=== PATIENT | female | born 1985 | race Asian ===

== ENCOUNTER → 2020-03-17 07:44 | Outpatient (CLI) | payer OTHER, SELFPAY ==
[2020-03-17 07:52] VITALS: BP 134/62; PULSE 90; RESP 16; TEMP 36.3; O2SAT 100; BMI 33.6
[2020-03-17 08:35] VITALS: BP 126/69; PULSE 87; RESP 16; TEMP 36.5; O2SAT 99
[2020-03-17] MEDS: 0.9% Saline Lock 10 ML Syringe IV (08:45)
[2020-03-17 09:35] VITALS: BP 121/70; PULSE 84; RESP 16; TEMP 36.5; O2SAT 98
[2020-03-17 10:05] VITALS: BP 126/79; PULSE 86; RESP 18; TEMP 36.5; O2SAT 98
== END ==
PROVIDERS: PCP Family Medicine; Referring Provider Nurse Practitioner Family; Visit Provider Nurse Practitioner Family
DX: N92.0 Excessive and frequent menstruation with regular cycle (principal)
CPT/HCPCS: 36415; 36430; 86850; 86900; 86901; 86920; 86922; J7040; P9016; A4216

== ENCOUNTER 2020-04-07 14:45 | Observation (INO) | payer OTHER, SELFPAY ==
[2020-03-17 07:52] VITALS: BMI 33.6
--- NOTE | 2020-04-06 18:41 | PCM.HPOB.BLA ---
- Problem List (1) Menorrhagia Status: Acute History and Physical Date of Admission: 04/07/20 DATE OF SERVICE: April 01, 2020 ? PROBLEM:?menorrhagia ? DIAGNOSIS:?menorrhagia ? PAST SURGICAL HISTORY:? PAST SURGICAL HISTORY PAST SURGICAL HISTORY Procedure Laterality Date ? DELIVERY ONLY ? 10/02/11 ? , low transverse ? DELIVERY ONLY N/A 11/22/2016 ? MIRENA ? 10/13/2019 ? menstrual dysfunction ? REM LESION NEC,HND,SCAL 2.1-3.0CM ? ? ? removal of 2.5 cm vulvar lesion ? PAST MEDICAL HISTORY:? PAST MEDICAL HISTORY PAST MEDICAL HISTORY Diagnosis Date ? Anemia affecting in third trimester 03/24/2020 ? Gestational diabetes ? ? Infertility, female ? ? attempted x 3 years with 1st ? Preeclampsia ? ? SUBJECTIVE:?menorrhagia ? SOCIAL HISTORY:? SOCIAL HISTORY Social History ? Tobacco Use ? Smoking status: Former Smoker ? ? Last attempt to quit: 08/16/2009 ? ? Years since quittin.6 ? Smokeless tobacco: Never Used Substance Use Topics ? Alcohol use: Yes ? ? Comment: social,NOT WHILE ? Drug use: No Current Outpatient Medications on File Prior to Visit Medication Sig ? megestrol (MEGACE) 20 mg tablet Take 1 tablet (20 mg) by mouth twice daily. ? MULTIVITAMIN ORAL Take by mouth. ? cetirizine HCl (ZYRTEC ORAL) Take by mouth as needed. ? Current Facility-Administered Medications on File Prior to Visit Medication ? iron sucrose 200 mg injection (VENOFER) ALLERGIES ALLERGIES Allergen Reactions ? Amoxil [Amoxicillin] Hives ? Cephalexin ? Hives ? ? Component Latest Ref Rng & Units 03/22/2020 WBC 3.70 - 11.00 k/uL 5.43 RBC 3.90 - 5.20 m/uL 4.89 Hemoglobin 11.5 - 15.5 g/dL 8.6 (L) Hematocrit 36.0 - 46.0 % 30.6 (L) MCV 80.0 - 100.0 fL 62.6 (L) MCH 26.0 - 34.0 pG 17.6 (L) MCHC 30.5 - 36.0 g/dL 28.1 (L) RDW-CV 11.5 - 15.0 % 20.1 (H) Platelet Count 150 - 400 k/uL 254 MPV 9.0 - 12.7 fL 9.9 Absolute nRBC <0.01 k/uL <0.01 Transvaginal ultrasound examination Uterus ====== Uterus: Visualized Uterus position: anteverted Uterus long 107 mm Uterus ap 73 mm Uterus tr 80 mm Uterus Vol 327.5 cm? Endometrial thickness, total 6.5 mm Uterine fibroid D1 47 mm Uterine fibroid D2 46 mm Uterine fibroid D3 45 mm Uterine fibroid mean 46.0 mm Uterine fibroid vol 50.941 cm? Uterine fibroids findings: mid uterus Uterine fibroid D1 15 mm Uterine fibroid D2 10 mm Uterine fibroid D3 14 mm Uterine fibroid mean 13.0 mm Uterine fibroid vol 1.100 cm? Uterine fibroids findings: posterior, mid left uterus Right Ovary ========= Rt ovary: Visualized Rt ovary D1 29 mm Rt ovary D2 18 mm Rt ovary D3 29 mm Rt ovary Vol 7.7 cm? Left Ovary ======== Lt ovary: Visualized Lt ovary D1 38 mm Lt ovary D2 28 mm Lt ovary D3 15 mm Lt ovary Vol 8.5 cm? Cul de Sac ? ? OBJECTIVE: ? VITALS: BP 110/76 ? Pulse 68 ? Resp 14 ? Ht 5' 3 (1.6 m) ? Wt 181 lb (82.1 kg) ? LMP 03/06/2020 ? BMI 32.06 kg/m? ? HEENT: ?Normocephalic, atraumatic, Mucus membranes moist without lesions. ? NECK: ???Soft and Supple. ?No adenopathy , thyromegaly or bruits. ? SKIN: No lesions. ? CHEST: Clear to auscultation. ?No wheezes or rales. ?Good air exchange. ? HEART: Regular rate and rhythm ?No S3 or S4. ?No gallops or rubs. ? BACK: Nontender with no CVA tenderness. ? ABDOMEN: Soft, non-tender, non-distended, no masses, no hepatosplenomegaly. ? LOWER EXTREMITIES: There was no pitting edema, no palpable cords and no skin changes. ? ? ASSESSMENT: ? PLAN:?Discussed all other treatment options for menorrhagia. Discussed possible need for laparotomy. Reviewed option for referral to a minimally invasive specialist for a robotic surgery. Pt is getting IV iron infusions. Will type and cross for 2 units prior to surgery. Discussed possible need for blood transfusion. Discussed TLH, BS, cysto.?The rationale for the proposed surgery was discussed in addition to risks, benefits, and alternatives. ?General pre- and post-operative care was reviewed. ?Questions were answered. ?After discussion, the patient indicated a desire to proceed with the planned surgery. ? Ramona Mcclelland,?DO
[2020-04-07] VITALS (13 sets, daily range): BP systolic 106–139; BP diastolic 52–85; PULSE 87–105; RESP 16–18; TEMP 36.2–37.2; O2SAT 92–100; BMI 31.9; BMI 32.8
[2020-04-07] MEDS: Scopolamine 1mg/72hr Patch 1 PATCH TRANSDERM. (07:00)
[2020-04-07] MEDS: Lactated Ringers 1,000 ML 40 ML IV ×2 (07:00→16:13)
[2020-04-07 07:49] LABS: Internal QC Validated? YES +Cl - CLEAR BKGD; Pregnancy, Urine Negative Negative
[2020-04-07 08:04] LABS: Hematocrit 38.5 % (37-47); Hemoglobin 10.8 g/dL (12.0-15.0); Mean Corp Hgb Conc 28.1 g/dL (32-36); Mean Corpuscular Hgb 19.1 pg (27.0-32.0); Mean Corpuscular Volume 68.3 fL (81-99); POSITIVE MORPHOLOGY YES; Platelet Count 286 K/mm3 (150-450); RBC Distribution Width CV 27.4 % (11.6-14.6); Red Blood Count 5.64 M/mm3 (4.2-5.4); White Blood Count 4.4 K/mm3 (4.4-11.0)
[2020-04-07 08:05] LABS: Scan Indicated on CBC? Y/N YES- FLAGS NOTED
[2020-04-07 08:10] LABS: Magnesium 1.9 mg/dL (1.6-2.6)
[2020-04-07 08:15] LABS: Partial Thromboplast Time 26.5 Seconds (24.1-36.2); Prothrombin Time (Protime)PT. 12.7 SECONDS (11.7-14.9)
[2020-04-07] MEDS: Celecoxib 200 MG Capsule 400 MG PO (08:16)
[2020-04-07] MEDS: Gabapentin 600 MG Tablet PO (08:17)
[2020-04-07] MEDS: Phenazopyridine 95 MG Tablet 190 MG PO (08:17)
[2020-04-07] MEDS: Acetaminophen 500 MG Tablet 1000 MG PO ×2 (08:18→19:40)
[2020-04-07] MEDS: dexAMETHasone 10 MG/ML Vial 8 MG IV (08:19)
[2020-04-07 08:51] LABS: Bedside Glucose 221 mg/dL (70-110)
--- NOTE | 2020-04-07 09:35 | HYST_PTH ---
PATIENT: VANESSA SMALL LOC: MS3 U#:[id number] AGE/SX: 35/F ROOM: MS306 RE04/07/[address]: Dr. Ramona Mcclelland DO : 1985 BED: 1 DIS: 04/08/2020 SPEC #: [id number] RECD: 04/07/20 16:03 STATUS: KATHARINE ANTON #: [id number] TRU: 04/07/20 09:[address]: Ramona Mcclelland DEPT: SURGICAL PATHOLOGY RECD BY: Dagoberto Leiva ENTERED: 04/08/20 08:03 SP TYPE: HYSTERECT OTHR DR: MD Dr. Bradley Caldwell DO Tissues: Uterus, NOS Procedures: Surgery Specimen Level V HEADER OPERATION: ERAS, TLH, bilateral salpingectomy, cystoscopy PRE-OP DIAGNOSIS: Menorrhagia TISSUE SUBMITTED: Uterus and bilateral fallopian tubes MICROSCOPIC DIAGNOSIS Uterus, hysterectomy: Cervix - nabothian cysts and mild chronic inflammation. Endometrium - weakly proliferative endometrium. Myometrium - leiomyomas and focal superficial adenomyosis. Fallopian tubes - benign paratubal cyst. AM:leda 04/11/20 MICROSCOPIC DESCRIPTION Slides are reviewed. GROSS DESCRIPTION Received in fixative is one container labeled with the patient's name and designated uterus and bilateral fallopian tubes. The specimen consists of a hysterectomy specimen consisting of uterus with cervix and detached bilateral fallopian tubes. The uterus with cervix weighs 244 gm and measures 12 x 9 x 6 cm. The serosal surface is akins, glistening. The ectocervical mucosa is unremarkable. The external os is slit-like in contour. The endocervical canal measures 3.5 cm in length and the endocervical mucosa is akins, glistening and unremarkable. Section of the cervix reveals a few cysts filled with mucoid material. The saucer-shaped endometrial cavity measures 6 cm in length and 5 cm in width. The endometrium is akins, glistening without any mass lesion and measures 0.1 cm in thickness. The endometrial cavity is compressed to one side. Sections of the uterine wall reveal two nodular masses. The largest mass is present submucosal to intramural in the anterior uterine wall and measures 5 cm in diameter. Section of the anterior uterine wall also contains an underlying nodular mass. Section of the posterior uterine wall reveals a smaller nodular mass measuring 1.5 cm in diameter. The uninvolved uterine wall measures up to 2.5 cm in thickness. Sections of these masses reveal akins whorled cut surfaces without areas of hemorrhage, necrosis or cystic degeneration. The detached bilateral fallopian tubes are not identified as right or left. One of the fallopian tubes measures 2.5 cm in length and 0.5 cm in diameter. The fimbrial end is identified. The second fallopian tube measures 4 cm in length and 0.8 cm in diameter. The fimbrial end is identified. Sections of both fallopian tubes reveal unremarkable cut surfaces. Plaque Maker sections are submitted in ten cassettes as follows: 1 - anterior cervix, 2 - posterior cervix, 3 & 4 - anterior uterine wall, 5 & 6 - posterior uterine wall, 7 - smaller nodular mass, 8 - larger nodular mass, 9 - smaller fallopian tube, entirely submitted, 10 - second fallopian tube. / OWEN:leda 04/08/20 TC:1 CPT: 22451
[2020-04-07] MEDS: Lactated Ringers 1,000 ML 100 ML IV ×2 (12:16→13:46)
[2020-04-07] MEDS: Bupivacaine Mpf 0.5% 30 ML VIAL (13:00)
--- NOTE | 2020-04-07 14:47 | PCM.OPRPT ---
Problem List (1) Menorrhagia Status: Acute (2) Acute blood loss anemia Status: Acute (3) Fibroid uterus Status: Acute Report of Operation Date of Procedure: 04/07/20 Pre-Operative Diagnosis: Menorrhagia, acute blood loss anemia, fibroid uterus Post-Operative Diagnosis: As above Surgery/Procedure Performed:: TLH, BS, cysto Description of Surgical Findings:: Enlarged fibroid uterus. There was a 5 cm intramural fibroid present. Normal-appearing bilateral fallopian tubes and bilateral ovaries. Normal-appearing pelvis. Bladder normal-appearing. Omental adhesions. value stream coach: Darlin Holland Type of Anesthesia:: General Special Medications: None Specimen's removed: Uterus, bilateral fallopian tubes, cervix Drains: Barahoan Estimated Blood Loss (mL): 100 Fluids Replaced: 2800 Description of Procedure: The patient was taken to the operating room where general anesthesia was induced. She was placed in the dorsal lithotomy position using yellowfin stirrups. She was prepped and draped in the usual sterile fashion. A Barahona catheter was inserted in the bladder. A weighted speculum was then placed in the vagina with good visualization of the cervix. The cervix was grasped anteriorly with a single-tooth tenaculum. A Sandag care uterine manipulator was placed. The weighted speculum was then removed. Gloves were changed and attention was then turned to the abdominal portion of the case. Local was used for infiltration of all port sites. Beginning in the subumbilical area, the skin was first infiltrated and then a 5 mm incision was made through the skin with a scalpel. A 5 mm port and the laparoscope were placed under direct visualization. Once confirmed intraperitoneal, the peritoneal cavity was insufflated with CO2 gas to maximum pressure of 20 mmHg. Significant omental adhesions were noted. A left upper quadrant 5 mm port was placed. Using the LigaSure device through the port in the left upper quadrant, the omental adhesions were cauterized and transected. Examination of the peritoneal cavity revealed no signs of injury from entry. The patient was placed in steep Trendelenburg. Once the omental adhesions were cauterized and transected, and the omentum was brought down off of the anterior abdominal wall, a left lateral and right lateral 5 mm port were placed. The fibroid uterus was noted to be enlarged. Then on the left side, the fallopian tube was elevated out of the pelvis to expose the mesosalpinx. The mesosalpinx was sequentially clamped, cauterized, and cut using the LigaSure device hugging adjacent to the tube from distal to proximal in the direction of the cornua. Once the cornea was reached, the tube was ligated and cut and removed through a 5 mm port. Following this the utero-ovarian ligament was clamped, sealed, and cut. The ovarian pedicle was inspected and noted to be hemostatic. Attention was then turned to the other side. The same process was repeated on the right, sequentially clamping, ligating, and cutting the mesosalpinx. The round ligament was then ligated and cut. Following this the anterior leaf of the broad ligament was then taken down on the right side dissecting towards the peritoneal reflection at the base of the bladder and adjacent to the cervix. The same process was was then repeated on the left side such that both sides met anteriorly. Once the bladder was appropriately dissected free from the lower uterine segment and tissue was skeletonized, the uterine arteries were bilaterally clamped and ligated. Pedicles were checked and hemostatic. At the level of the cup of the uterine manipulator, the vaginal vault was incised circumferentially with a monopolar hook. The uterus, cervix, tubes were delivered through the vagina and sent to pathology for review. The vaginal vault was then closed with Vicryl from below. There was a laceration noted along the left vaginal wall that was bleeding, and this was closed using Vicryl to ensure hemostasis. Inspection of all areas was made to ensure hemostasis. A cystoscopy was performed and the bladder was normal-appearing. Then attention was turned to the abdominal portion of the case again. The abdomen was insufflated. Hemostasis was noted from above, and the pelvis was suction irrigated. All ports were removed under direct visualization and hemostasis was noted. The subumbilical port was then opened to release the abdominal cavity and was then removed. All the incisions were closed with Monocryl in a subcuticular fashion. At the end the procedure all sponge, instrument, and sharps were correct. All instruments were removed from the vagina and a vaginal sweep was performed. The patient was taken to the recovery room in stable condition. Grafts/Implants Used: None - Complications None - Admit VTE Documentation VTE Present on Admission: No VTE Mechan Device Prophylaxis: SCD's
[2020-04-07] MEDS: Ondansetron ODT 4 MG Tablet PO (17:26)
[2020-04-07] MEDS: Ketorolac 30 MG/ML Syringe IV (17:28)
[2020-04-07] MEDS: Docusate Sodium 100 MG Capsule PO (22:45)
[2020-04-08] MEDS: Ondansetron ODT 4 MG Tablet PO (00:38)
[2020-04-08] MEDS: Ketorolac 30 MG/ML Syringe IV ×3 (00:38→11:30)
[2020-04-08 03:30] VITALS: BP 113/70; PULSE 101; RESP 16; TEMP 36.8; O2SAT 96
[2020-04-08] MEDS: Acetaminophen 500 MG Tablet 1000 MG PO ×2 (05:12→11:30)
[2020-04-08 05:32] LABS: Hematocrit 33.2 % (37-47); Hemoglobin 9.2 g/dL (12.0-15.0); Mean Corp Hgb Conc 27.7 g/dL (32-36); Mean Corpuscular Hgb 19.5 pg (27.0-32.0); Mean Corpuscular Volume 70.3 fL (81-99); Mean Platelet Vol. 10.7 fl (6.2-12.0); POSITIVE MORPHOLOGY YES; Platelet Count 274 K/mm3 (150-450); RBC Distribution Width CV 27.9 % (11.6-14.6); RBC Distribution Width SD 66.6 fl (35.1-43.9); Red Blood Count 4.72 M/mm3 (4.2-5.4); White Blood Count 6.1 K/mm3 (4.4-11.0)
[2020-04-08 05:36] LABS: Scan Indicated on CBC? Y/N YES- FLAGS NOTED
--- NOTE | 2020-04-08 05:44 | NURSING ---
pt walked in josue x1 around entire unit. C/O ABD pain/gas pressure. Chewing gum provided.
[2020-04-08 05:54] VITALS: BP 118/78; PULSE 92; RESP 16; TEMP 36.9; O2SAT 97
[2020-04-08] MEDS: oxyCODONE 5 MG Tablet PO ×2 (06:29→08:24)
[2020-04-08 06:33] LABS: Differential Comment SCANNED
--- NOTE | 2020-04-08 07:43 | PN.OBGYN_ITS ---
Patient Problems: Active and Suspected Problems Acute blood loss anemia (Acute) Fibroid uterus (Acute) Subjective: She is doing well this morning. Overnight her pain she reports was not well controlled, but she took oxycodone this morning and now she feels her pain is well controlled. She was having some nausea yesterday that is now resolved. She has ambulated without lightheadedness or dizziness. Barahona remains in place. She denies chest pain, shortness of breath, leg pain. No heavy vaginal bleeding. - Physical Exam Vitals/I&O's: Vital Signs Temp Pulse Resp BP Pulse Ox 98.5 F 92 16 118/78 97 04/08/20 05:54 04/08/20 05:54 04/08/20 05:54 04/08/20 05:54 04/08/20 05:54 Oxygen Flow Rate (L/min) 6 Oxygen Delivery Method Room Air Weight: 185 lb Body Mass Index (BMI) 32.8 Intake and Output for Last 24 Hours 04/06/20 04/07/20 04/08/20 23:59 23:59 23:59 Intake Total 3267.875 / 3867.875 900 / 900 Output Total 100 / 1925 2275 / 2275 Balance 3167.875 / 1942.875 -1375 / -1375 General: Alert, No apparent distress HEENT: Atraumatic Abdomen: Soft, Non-Distended, - - ATTP, no rebounding, no gaurding, no rigidity Extremities: No edema, No Calf Tenderness Skin: No rashes Neurological: Neuro grossly intact Psych/Mental Status: Normal Affect, Appropriate Laboratory Results 04/07/20 07:50: WBC 4.4, RBC 5.64 H, Hgb 10.8 L, Hct 38.5, MCV 68.3 L, MCH 19.1 L, MCHC 28.1 L, RDW Std Deviation 62.0 H, RDW Coeff of Clementina 27.4 H, Plt Count 286, Differential Comment COMMENT 04/07/20 07:50: PT 12.7, INR 1.0, APTT 26.5 04/07/20 07:50: Magnesium 1.9 04/07/20 07:50: Blood Type B POSITIVE, Antibody Screen NEGATIVE 04/07/20 08:09: POC Glucose 221 H 06/25/20 : Urine Test Negative 04/08/20 05:00: WBC 6.1, RBC 4.72, Hgb 9.2 L, Hct 33.2 L, MCV 70.3 L, MCH 19.5 L , MCHC 27.7 L, RDW Std Deviation 66.6 H, RDW Coeff of Clementina 27.9 H, Plt Count 274, MPV 10.7, Differential Comment SCANNED Current Medications Acetaminophen (Tylenol) 1,000 mg PO Q6 [facility] Last Admin: 04/08/20 05:12 Dose: 1,000 mg Documented by: Docusate Sodium (Colace) 100 mg PO BID [facility] Last Admin: 04/07/20 22:45 Dose: 100 mg Documented by: Enoxaparin Sodium (Lovenox) 40 mg SC DAILY [facility] Lactated Ringer's () 1,000 mls @ 40 mls/hr IV .Q25H [facility] Stop: 04/08/20 15:39 Last Admin: 04/07/20 16:13 Dose: 40 mls/hr Documented by: Ketorolac Tromethamine (Toradol (Bkc)) 30 mg IV Q6 [facility] Stop: 04/09/20 00:01 Last Admin: 04/08/20 05:12 Dose: 30 mg Documented by: Magnesium Oxide (Mag-Ox 400) 400 mg PO DAILY PRN PRN PRN Reason: Constipation Nutritional Formula (Lactose Free) (Ensure Enlive) 120 ml PO TIDCM [facility] Last Admin: 04/07/20 17:28 Dose: Not Given Documented by: Ondansetron HCl (Zofran Odt) 4 mg PO Q6H PRN PRN PRN Reason: NAUSEA Last Admin: 04/08/20 00:38 Dose: 4 mg Documented by: Oxycodone HCl (Oxyir) 5 - 10 mg PO Q4H PRN PRN PRN Reason: Pain Score 4-10/10 Last Admin: 04/08/20 06:29 Dose: 5 mg Documented by: Medical Necessity - Tobacco Use Smoking Status: Former smoker Assessment/Plan All Active Problems Menorrhagia (Acute) Acute blood loss anemia (Acute) Fibroid uterus (Acute) Patient is postoperative day 1 from a total laparoscopic hysterectomy, bilateral salpingectomy, cystoscopy. She is doing well this morning. Hemodynamically stable. CBC reviewed. Encourage ambulation this morning. Barahona to be removed. Discharge order placed. Reviewed discharge instructions with patient. To be discharged after she tolerates breakfast and lunch, ambulating, and voiding on her own.
--- NOTE | 2020-04-08 07:48 | DCINST_ITS ---
- Discharge Diagnoses Current Active Problems: Current Active and Chronic Problems Acute blood loss anemia (Acute) Fibroid uterus (Acute) You will use the following diet at home:: No restrictions, Regular Discharge Activity: May not drive while taking narcotic pain medications., May Shower May resume sexual activity in: 6-8 weeks Ice area for (Minutes): 15 Weight Bearing Status: Weight bearing as tolerated Lifting Restrictions: Do not lift anything greater than 10 lbs Call your doctor if your incision/area has: Sudden Increased Bleeding, Increased Pain/ Swelling, Increased Redness, Foul Smelling Discharge, Swelling at the incision site Call your doctor if you observe: Fever of 101 or Higher, Inability to urinate, Inability to have a bowel movement, Using more than one pad per hour, Shortness of breath, Dizziness, Fainting spells, Chest pain, Increased palpitations (irregular heartbeat), Calf discomfort, Uncontrolled pain, - - Heavy vaginal bleeding, vaginal discharge Suture Line Care: Avoid Pulling/Pushing, Avoid Pinching/Bending Cleanse incision/area with: Soap & Water Allergies/Adverse Reactions: Allergies amoxicillin [Amoxicillin] Allergy (Verified 04/07/20 07:57) Hives cephalexin Allergy (Verified 04/07/20 07:57) Rash Medications to take at Discharge Megestrol Acetate 20 mg PO BID 03/17/20 Multivitamins,Therapeutic [Multivitamin] 1 tab PO DAILY 03/17/20 Ibuprofen [Motrin] 400 mg PO Q8H PRN 03/31/20 Docusate Sodium [Colace] 100 mg PO BID PRN PRN #60 cap 04/08/20 Ferrous Sulfate 325 mg PO DAILY #60 tab 04/08/20 Ibuprofen [Motrin] 800 mg PO TID PRN PRN #30 tab 04/08/20 Oxycodone HCl/Acetaminophen [Percocet 5/325] 1 tablet PO Q6H PRN PRN 7 Days #20 tablet 04/08/20 Primary Care Physician: Bradley Butler DO [Primary Care Provider] - Test Results: Test results from this visit will be discussed in further detail at your follow- up appointment, if applicable. Please Follow Up With: Ramona Mcclelland DO When: 1-2 weeks, and 6 weeks
[2020-04-08 08:12] VITALS: O2SAT 98
[2020-04-08] MEDS: Enoxaparin 40 MG/0.4 ML Syringe SC (08:21)
[2020-04-08] MEDS: Docusate Sodium 100 MG Capsule PO (08:21)
[2020-04-08 11:44] VITALS: BP 113/72; PULSE 89; RESP 16; TEMP 36.7; O2SAT 95
--- NOTE | 2020-04-08 12:15 | PHA.DC.MC ---
Pharmacy Service has performed discharge medication reconciliation and counseling for this patient. 1. DOCUSATE 100MG PO BID PRN CONSTIPATION 2. FERROUS SULFATE 325MG PO DAILY 3. OXYCODONE/ACETAMINOPHEN 5/325MG PO Q6H PRN PAIN 6-07/23 X 7 DAYS The patient's discharge medication list was reviewed for discrepancies and discrepancies were resolved. Instructed patient to not take ibuprofen 400mg while taking 800mg dose. Home Medications Megestrol Acetate 20 mg PO BID 03/17/20 Multivitamins,Therapeutic [Multivitamin] 1 tab PO DAILY 03/17/20 Ibuprofen [Motrin] 400 mg PO Q8H PRN 03/31/20 Docusate Sodium [Colace] 100 mg PO BID PRN PRN #60 cap 04/08/20 Ferrous Sulfate 325 mg PO DAILY #60 tab 04/08/20 Ibuprofen [Motrin] 800 mg PO TID PRN PRN #30 tab 04/08/20 Oxycodone HCl/Acetaminophen [Percocet 5/325] 1 tab PO Q6H PRN PRN 7 Days #20 tab 04/08/20 The patient was counseled on the following discharge medications and changes in medications for homegoing were reviewed. The Reason for Use, instructions for use, and potential side effects were reviewed for all new medications. The patient's questions regarding all of their medications were answered. The patient was able to verbally demonstrate an understanding of their discharge medications.
== END 2020-04-08 12:36 | disposition home or self-care (01) ==
LOC: SDC 15:00 → MS3 15:00
PROVIDERS: Anesthesiology; Admitting Provider Obstetrics & Gynecology; PCP Family Medicine; Referring Provider Obstetrics & Gynecology; Visit Provider Obstetrics & Gynecology
PROC: 0UT94ZZ Resection of Uterus, Percutaneous Endoscopic Approach (ICD-10-PCS; CPT 58571; principal; 2020-04-07 09:15)
DX: D25.1 Intramural leiomyoma of uterus (principal); N88.8 Other specified noninflammatory disorders of cervix uteri; N83.8 Other noninflammatory disorders of ovary, fallopian tube and broad ligament; Z87.891 Personal history of nicotine dependence; D50.9 Iron deficiency anemia, unspecified; K21.9 Gastro-esophageal reflux disease without esophagitis
CPT/HCPCS: 00940; 58571; 81025; 82962; 83735; 85027; 85610; 85730; 86850; 86900; 86901; 87635; 88307; 96372; 96374; 96376; 99218; 99251; G2023; J7120; G0378; G0379; G0463; J2405; J3475; U0003

== ENCOUNTER 2022-01-30 15:11 | Outpatient (CLI) | payer BC, SELFPAY ==
[2022-01-30 16:53] LABS: Hemoglobin A1c 6.9 % (3.8-5.6)
[2022-01-30 16:58] LABS: ALB/GLOB Ratio 1.1 RATIO (0.9-2.4); AST(SGOT) 34 U/L (15-37); Alanine Aminotransfer ALT/SGPT 49 U/L (13-56); Alkaline Phosphatase 89 U/L (45-117); Anion Gap 6 (5-15); BUN 11 mg/dL (7-18); BUN/Creat Ratio 12.7 RATIO (10-20); Chloride 106 mmol/L (98-107); Creatinine, Serum 0.87 mg/dL (0.55-1.02); EST Glomerular Filtration Rate 78 mL/min (>60); Est Glom Filt Rate - Afr Amer 95 mL/min (>60); Globulin 3.8 g/dL (2.2-4.2); Glucose 143 mg/dL (74-106); Potassium 3.9 mmol/L (3.5-5.1); Protein, Total 7.8 g/dL (6.4-8.2); Sodium Level 137 mmol/L (136-145); Thyroid Stim Hormone (TSH) 0.96 uIU/mL (0.358-3.74)
== END 2022-01-30 23:59 | disposition home or self-care (01) ==
PROVIDERS: PCP Family Medicine; Referring Provider Family Medicine; Visit Provider Family Medicine
DX: R73.03 Prediabetes (principal)
CPT/HCPCS: 36415; 80053; 83036; 84443

== ENCOUNTER 2022-07-26 13:52 | Outpatient (RCR) | payer SELFPAY | END 2022-07-26 19:00 | disposition home or self-care (01) | LOC: PT 13:52 | PROVIDERS: PCP Family Medicine | DX: R69 Illness, unspecified (principal) ==

== ENCOUNTER 2022-08-14 15:00 | Outpatient (RCR) | payer BC, SELFPAY ==
--- NOTE | 2022-08-08 15:53 | HP.OTEVAL_ITS ---
Patient's Visit Information VANESSA SMALL is a 37 year old F, referred to Occupational Therapy by Dr. Bridgette Valdes DO, with a diagnosis of wrist tendonitis. Date of Evaluation: 08/08/22 Occupational Therapist: Lexie Miranda, MARKOSR/Marvin, CHT - Subjective This 37 year old female was seen for OT eval with dx of right wrist tendonitis- pt states her symptoms initiated about eight weeks ago. Pt states her DrRoss did place her on an anti-inflammatory- pt states she has been wear ight brace but had more pain around her thumb and had tingling so she decided to not wear it. pt does workout 6 days a week- pts exercise ranges from free wts, group classes and gym eq. pt states she does use kettle riggs with one hand- now pain with ex. and wrist hurts more after exercising. pt states she does get a catch or click in her wrist from time to time. pt would like to resume her daily tasks without pain including her exercise routines. - Pain right wrist 3 Pain Intensity Range: 6 - ROM Forearm: right supination 30* without pain left WNL Wrist: right 65/40 left 70/60 ROM Comments: pt demo with a click with forearm supination and pronation. pt can get full supination just painful to perform. - Strength Jacquard Plate Maker: right 35# left 45# Lateral Pinch: right 12# left 8# Tripod Pinch: right 4# left 8# - Sensation Sensation Comments: denies - Goals Goal:ROM equal to unaffected hand: Yes Goal:Jacquard Plate Maker/Pinch strength at least 75% of unaffected hand: Yes Goal:No pain with affected hand use: Yes Goal:Full use of affected hand in daily activities including: Yes Comment: ergonomic use with daily tasks Other Goal: pt will demo understanding of wrist ergo with daily tasks to avoid tendon stress by d/c - Rehabilitation General Assessment: This 37 year old female demo with painful ulnar side of wrist- click with forearm supination/pronation- negative piano chew- positive TFCC resistive testing- pt demo with ligament instability increasing pain with daily tasks and limits her IND. pt would benefit from OT services 1-2x week for 4 weeks to return pt to PLOF. Today therapist ed. pt on wrist ergonomics with lifting and daily tasks- pt advised to use wrist brace with ex for now. pt demo understanding. Therapist did advise if no change in 4 visits would have to brace for 6 weeks. pt demo understanding, Rehabilitation Potential: Good - Anticipated Interventions Strengthening, Triggerpoint Release, Modalities, Orthoses, Joint Protection/Energy Conservation, Ergonomic Education, Education re assistive Equipment, Education re Diagnosis, Home Program - Visit Plan Frequency: 1-2x /Week Duration: 4 Weeks General Plan: initiate support (TFCC supportive brace). ergonomics with lifting/exercise. wrist stabilization ex. isometrics. strengthen in limited ROM TEXT: Thank you for the opportunity to evaluate your patient. For Medicare and Medicare HMO plans, please review the plan of care and approve it. It will need to be FAXED BACK to us at [phone] for Medicare purposes. Please let me know if there are questions or concerns regarding this plan of care. Physician Signature: Date:
--- NOTE | 2022-08-08 15:57 | HP.OTEVAL ---
Patient's Visit Information VANESSA SMALL is a 37 year old F, referred to Occupational Therapy by Dr. Bridgette Valdes DO, with a diagnosis of wrist tendonitis. Date of Evaluation: 08/08/22 Occupational Therapist: Lexie Miranda, MARKOSR/Marvin, CHT - Subjective This 37 year old female was seen for OT eval with dx of right wrist tendonitis- pt states her symptoms initiated about eight weeks ago. Pt states her DrRoss did place her on an anti-inflammatory- pt states she has been wear ight brace but had more pain around her thumb and had tingling so she decided to not wear it. pt does workout 6 days a week- pts exercise ranges from free wts, group classes and gym eq. pt states she does use kettle riggs with one hand- now pain with ex. and wrist hurts more after exercising. pt states she does get a catch or click in her wrist from time to time. pt would like to resume her daily tasks without pain including her exercise routines. - Pain right wrist 3 Pain Intensity Range: 6 - ROM Forearm: right supination 30* without pain left WNL Wrist: right 65/40 left 70/60 ROM Comments: pt demo with a click with forearm supination and pronation. pt can get full supination just painful to perform. - Strength Terminal Operator: right 35# left 45# Lateral Pinch: right 12# left 8# Tripod Pinch: right 4# left 8# - Sensation Sensation Comments: denies - Quick DASH-Disab of Arm,Shoulder& Hand Quick DASH Score: 42.1050 - Goals Goal:ROM equal to unaffected hand: Yes Goal:Terminal Operator/Pinch strength at least 75% of unaffected hand: Yes Goal:No pain with affected hand use: Yes Goal:Full use of affected hand in daily activities including: Yes Comment: ergonomic use with daily tasks Other Goal: pt will demo understanding of wrist ergo with daily tasks to avoid tendon stress by d/c - Rehabilitation General Assessment: This 37 year old female demo with painful ulnar side of wrist- click with forearm supination/pronation- negative piano chew- positive TFCC resistive testing- pt demo with ligament instability increasing pain with daily tasks and limits her IND. pt would benefit from OT services 1-2x week for 4 weeks to return pt to PLOF. Today therapist ed. pt on wrist ergonomics with lifting and daily tasks- pt advised to use wrist brace with ex for now. pt demo understanding. Therapist did advise if no change in 4 visits would have to brace for 6 weeks. pt demo understanding, Rehabilitation Potential: Good - Anticipated Interventions Strengthening, Triggerpoint Release, Modalities, Orthoses, Joint Protection/Energy Conservation, Ergonomic Education, Education re assistive Equipment, Education re Diagnosis, Home Program - Visit Plan Frequency: 1-2x /Week Duration: 4 Weeks General Plan: initiate support (TFCC supportive brace). ergonomics with lifting/exercise. wrist stabilization ex. isometrics. strengthen in limited ROM TEXT: Thank you for the opportunity to evaluate your patient. For Medicare and Medicare HMO plans, please review the plan of care and approve it. It will need to be FAXED BACK to us at [phone] for Medicare purposes. Please let me know if there are questions or concerns regarding this plan of care. Physician Signature: Date:
--- NOTE | 2022-11-01 14:00 | HP.OT.NRP ---
VANESSA SMALL was seen in my office for initial evaluation on 08/08/22. The following Plan of Care was established for this patient: Initial Frequency: 1-2x /Week Initial Duration: 4 Weeks Anticipated Interventions: Strengthening, Triggerpoint Release, Modalities, Orthoses, Joint Protection/Energy Conservation, Ergonomic Education, Education re assistive Equipment, Education re Diagnosis, Home Program This patient was last seen in our office 08/14/22. Pertinent comments regarding their Occupational therapy will appear below: pt was seen for OT eval and 1 tx session. At this time no further apts. have been scheduled and due to time lapse of greater than 30 days of services pt is d/c. At this point I will be discontinuing this patient from occupational therapy. I would be happy to see this patient again in the future if found appropriate by the physician. Thank you! Lexie Miranda, OTR/L, CHT
== END 2022-08-14 19:00 | disposition home or self-care (01) ==
LOC: OT 15:00
DX: M77.8 Other enthesopathies, not elsewhere classified (principal)
CPT/HCPCS: 97035; 97140; 97166

== ENCOUNTER 2023-01-06 18:59 | Emergency (ER) | payer BC, SELFPAY ==
[2023-01-06 19:00] VITALS: BP 122/77; PULSE 96; RESP 18; TEMP 37.7; O2SAT 97; BMI 28.0
--- NOTE | 2023-01-06 19:22 | CT_ITS ---
INDICATION: Concerns for abscess, post op tumcatie tuck 4 weeks EXAMINATION: CT ABDOMEN AND PELVIS WITH CONTRAST TECHNIQUE: Helically acquired images were obtained of the abdomen and pelvis following IV contrast. A radiation dose optimization technique was used for this scan. IV Contrast dosage and agent: Isoview 370, 100mL. Oral contrast: None. COMPARISON: None. FINDINGS: LOWER CHEST: Lung bases are clear. No cardiomegaly or pericardial effusion. LIVER: Homogeneous. No focal mass. GALLBLADDER AND BILIARY TREE: No calcified gallstones. No gallbladder distension or wall edema. No intra- or extrahepatic biliary ductal dilation. PANCREAS: No focal cystic or solid mass. SPLEEN: Normal size without focal cystic or solid mass. ADRENAL GLANDS: No nodules. KIDNEYS AND URETERS: Normal renal size and position. No hydronephrosis. PERITONEUM: No ascites or free air. No other fluid collection. BOWEL: No evidence of acute appendicitis. No stomach or bowel distension. No focal inflammatory changes. Moderate degree of retained stool throughout the colon. LYMPH NODES: No enlarged mesenteric or retroperitoneal lymph nodes. VESSELS: Aorta is non-dilated. No dissection. URINARY BLADDER: Unremarkable. No gas or stone. REPRODUCTIVE ORGANS: No pelvic masses. ABDOMINAL WALL: Large, marginally enhancing fluid collection involving the right flank and lower anterior abdominal wall. This measures up to 18 cm in width x 2.3 cm AP x 6.5 cm craniocaudal. Fat stranding in the subcutaneous tissues consistent with recent surgical procedure. BONES: No lytic or blastic abnormality. Unremarkable for age. CT/Abdomen/Pelvis W IV Cont ONLY IMPRESSION: Right flank and anterior abdominal wall abscess. Electronically Signed: Sanjay Ortiz MD at 20:35 EDT ,
[2023-01-06 19:35] LABS: Absolute Lymphocyte Count 0.44 X10^3/uL (0.83-4.51); Absolute Neutrophil Count 9.1 X10^3/uL (2.0-7.7); Basophil# 0.04 X10^3/uL; Basophil% 0.4 % (0-1); Eosinophil# 0.03 X10^3/uL; Eosinophils% 0.3 % (0-5); Hematocrit 40.3 % (37-47); Hemoglobin 13.4 g/dL (12.0-15.0); Lymphocyte # 0.44 X10^3/ul (0.83-4.51); Lymphocyte % 4.4 % (19-41); Mean Corp Hgb Conc 33.3 g/dL (32-36); Mean Corpuscular Hgb 28.3 pg (27.0-32.0); Mean Corpuscular Volume 85.2 fL (81-99); Mean Platelet Vol. 10.1 fl (6.2-12.0); Monocyte# 0.45 X10^3/uL; Monocyte% 4.5 % (0-10); NRBC Flagged by Analyzer 0 % (0-5); Neutrophil # 9.09 X10^3/uL (2.7-7.7); Neutrophil % 90.1 % (47-70); POSITIVE DIFFERENTIAL YES; Platelet Count 193 K/mm3 (150-450); RBC Distribution Width CV 12.4 % (11.6-14.6); RBC Distribution Width SD 38.5 fl (35.1-43.9); Red Blood Count 4.73 M/mm3 (4.2-5.4); White Blood Count 10.1 K/mm3 (4.4-11.0)
[2023-01-06 19:44] LABS: Differential Indicated SCAN CRITERIA MET
--- NOTE | 2023-01-06 19:50 | EX.ED.DYSGE1 ---
HPI <DEE Villatoro - Last Filed: 01/06/23 21:12> History of Present Illness Chief Complaint: General Illness <Dr. Mumtaz Garcia MD - Last Filed: 01/07/23 02:37> History of Present Illness Informant: patient Narrative Narrative: Patient had a tummy tuck about 4 weeks ago, it was draining less. She has been having soreness on the right side of the incision but not necessarily worsening. There is been no drainage and the incision has been healing well. Today her Apple Watch was telling her that her heart rate was high; she did not feel it. She checked her temperature and had a fever. She called her surgeon, she was prescribed Bactrim but also advised to go to the ER. She filled the Bactrim and she took 1. PFSH <DEE Villatoro - Last Filed: 01/06/23 21:12> PFSH Medical History (Updated 01/06/23 @ 23:[address] Mumtaz Garcia MD) Fibroid uterus Pre-diabetes Home Medications blood-glucose meter #1 ea 01/30/22 [Rx Last Taken Unknown] dulaglutide 0.75 mg/0.5 mL subcutaneous pen injector 1 mg subcut QWEEK 01/30/22 [History Last Taken Unknown] oxycodone-acetaminophen 5 mg-325 mg tablet 1 tab PO Q6H PRN PRN Pain 4 days #16 TABLETS 01/07/23 [Rx Last Taken Unknown] Allergy/AdvReac Type Severity Reaction Status Date / Time amoxicillin [Amoxicillin] Allergy Hives Verified 01/06/23 19:02 cephalexin Allergy Rash Verified 01/06/23 19:02 Family History (Updated 01/30/22 @ 14:36 by Mercedes Zambrano) Other Diabetes High cholesterol Hypertension Thyroid disorder Surgical History (Updated 01/06/23 @ 19:31 by Idalia Conrad) H/O abdominoplasty H/O: hysterectomy History of 2 sections Social History (Updated 01/30/22 @ 14:36 by Mercedes Zambrano) Smoking Status: Never smoker alcohol intake: never substance use type: does not use what type of physical activity do you participate in: bicycling, aerobics and weight training frequency: 5-6 times per week ROS <DEE Villatoro - Last Filed: 01/06/23 21:12> ROS ED Constitutional Constitutional ED: Reports chills, fever(s) and sweats ENT ENT ED: Denies rhinorrhea or sore throat Cardiovascular Cardiovascular: Denies chest pain or palpitations Respiratory/Chest Respiratory/Chest: Denies cough or dyspnea Gastrointestinal Gastrointestinal: Reports abdominal pain; Denies constipation, diarrhea, nausea or vomiting Genitourinary Genitourinary ED: Denies dysuria, hematuria or urinary urgency Musculoskeletal Musculoskeletal: Reports myalgias; Denies arthralgias, back pain or neck pain Integumentary Denies abscess, Abrasions or rash Neurologic Neurologic: Denies confusion, dizziness or paresthesias Psychiatric Psychiatric: Denies anxiety, depression, suicidal ideation or suicidal thoughts EXAM <DEE Villatoro Last Filed: 01/06/23 21:12> Physical Exam Const Vital Signs: 01/06/23 19:00 01/06/23 19:34 01/06/23 21:21 Temperature 99.9 F H 100.8 F H Temperature Source Temporal Oral Pulse Rate 96 125 H Respiratory Rate 18 20 H Respiratory Effort Normal Non-Labored Respiratory Pattern Normal Blood Pressure 122/77 H 140/79 H Blood Pressure Mean 92 99 Pulse Ox 97 97 Oxygen Delivery Method Room Air Room Air 01/06/23 22:09 01/06/23 23:12 01/07/23 00:15 Temperature 100.5 F H 99.6 F H Temperature Source Oral Oral Pulse Rate 122 H 122 H 122 H Respiratory Rate 18 20 H 18 Respiratory Effort Respiratory Pattern Blood Pressure 141/75 H 134/70 H 133/76 H Blood Pressure Mean 97 91 Pulse Ox 96 98 97 Oxygen Delivery Method Room Air Room Air Positive well nourished, well developed and no apparent distress General Appearance ED: well developed HEENT Reports normocephalic and head/scalp atraumatic Mouth ED: Yes moist mucous membranes normal Eyes PERRL and EOMs intact bilaterally Neck full ROM and supple Chest Wall inspection of chest normal Resp normal respiratory effort and clear to auscultation bilaterally Cardio regular rate and regular rhythm GI soft to palpation GI Narrative: Linear scar across lower abdomen from tummy tuck. There is no wound dehiscence. tenderness to palpation along the scar on the right side. There is firmness to the area as well as edema. Mild erythema in the area. Back/Spine normal ROM and normal to inspection Extremity normal to inspection and full ROM Neuro oriented x3, CN's II-XII intact bilaterally, moves all extremities, no focal motor deficits and no sensory deficits noted Sensorium / Orientation: awake and alert Psych mental status grossly normal and thought process normal <Dr. Mumtaz Garcia MD - Last Filed: 01/07/23 02:37> Physical Exam Const Vital Signs: 01/06/23 19:00 01/06/23 19:34 01/06/23 21:21 Temperature 99.9 F H 100.8 F H Temperature Source Temporal Oral Pulse Rate 96 125 H Respiratory Rate 18 20 H Respiratory Effort Normal Non-Labored Respiratory Pattern Normal Blood Pressure 122/77 H 140/79 H Blood Pressure Mean 92 99 Pulse Ox 97 97 Oxygen Delivery Method Room Air Room Air 01/06/23 22:09 01/06/23 23:12 01/07/23 00:15 Temperature 100.5 F H 99.6 F H Temperature Source Oral Oral Pulse Rate 122 H 122 H 122 H Respiratory Rate 18 20 H 18 Respiratory Effort Respiratory Pattern Blood Pressure 141/75 H 134/70 H 133/76 H Blood Pressure Mean 97 91 Pulse Ox 96 98 97 Oxygen Delivery Method Room Air Room Air MDM <DEE Villatoro - Last Filed: 01/06/23 21:12> [facility] Narrative Medical decision making narrative: Patient presenting today with fever, chills, body aches that she has had for the past 2 days. She is concerned because she just had a tummy tuck through Dr. Nelson 4 weeks ago and is now having pain along the right side of the incision as well as swelling and increased redness to the area. She has a lot of tenderness to palpation in that area. She did not have any postop complications. Labs will be obtained to rule out cytosis, anemia, electrolyte abnormality. CT of the abdomen and pelvis with IV contrast will be obtained to rule out abscess. CT does show right flank and anterior abdominal wall abscess. Patient has been started on vancomycin and aztreonam. I have spoke to patient's plastic surgeon Dr. Nelson and have read her the CT results. She recommends that we open the incision a few centimeters and drain the abscess and place her on antibiotics and discharge her home. She will follow-up with her in the office next week. Lab Data Attestation: I reviewed the patient's lab results. Lab results narrative: CBC shows increased neutrophils, decreased lymphocytes, BMP unremarkable Labs: Laboratory Results - last 24 hr 01/06/23 01/06/23 19:26 19:26 WBC 10.1 RBC 4.73 Hgb 13.4 Hct 40.3 MCV 85.2 MCH 28.3 MCHC 33.3 RDW Std Deviation 38.5 RDW Coeff of Clementina 12.4 Plt Count 193 MPV 10.1 Immature Gran % (Auto) 0.300 Neut % (Auto) 90.1 H Lymph % (Auto) 4.4 L [place] % (Auto) 4.5 Eos % (Auto) 0.3 Baso % (Auto) 0.4 Absolute Neuts (auto) 9.1 H Absolute Lymphs (auto) 0.44 L Nucleated RBC % 0 Differential Comment Sodium 137 Potassium 3.7 Chloride 104 Carbon Dioxide 26.0 Anion Gap 7 BUN 8 Creatinine 0.78 Estim Creat Clear Calc 82.48 Est GFR (MDRD) Af Amer 107 Est GFR (MDRD) Non-Af 89 BUN/Creatinine Ratio 10.3 Glucose 123 H Calcium 8.9 Radiography Diagnostic Testing: Clinical Impression(s) from Imaging Studies Abdomen/Pelvis CT 01/06/23 19:22 IMPRESSION: Right flank and anterior abdominal wall abscess. Electronically Signed: Sanjay Ortiz MD at 20:35 EDT , CT read and interpreted by attending ED physician. <Dr. Mumtaz Garcia MD - Last Filed: 01/07/23 02:37> [facility] Lab Data Labs: Laboratory Results - last 24 hr 01/06/23 01/06/23 19: 19:26 WBC 10.1 RBC 4.73 Hgb 13.4 Hct 40.3 MCV 85.2 MCH 28.3 MCHC 33.3 RDW Std Deviation 38.5 RDW Coeff of Clementina 12.4 Plt Count 193 MPV 10.1 Immature Gran % (Auto) 0.300 Neut % (Auto) 90.1 H Lymph % (Auto) 4.4 L [place] % (Auto) 4.5 Eos % (Auto) 0.3 Baso % (Auto) 0.4 Absolute Neuts (auto) 9.1 H Absolute Lymphs (auto) 0.44 L Nucleated RBC % 0 Differential Comment Sodium 137 Potassium 3.7 Chloride 104 Carbon Dioxide 26.0 Anion Gap 7 BUN 8 Creatinine 0.78 Estim Creat Clear Calc 82.48 Est GFR (MDRD) Af Amer 107 Est GFR (MDRD) Non-Af 89 BUN/Creatinine Ratio 10.3 Glucose 123 H Calcium 8.9 Radiography Diagnostic Testing: Clinical Impression(s) from Imaging Studies Abdomen/Pelvis CT 01/06/23 19:22 IMPRESSION: Right flank and anterior abdominal wall abscess. Electronically Signed: Sanjay Ortiz MD at 20:35 EDT , Treatment and Re-Evaluation Comments:: Seen and evaluated independently and in conjunction with physician office services assistant. Agree with notes above unless documented otherwise. Patient tender along the right aspect of her operative wound, there is very mild erythema, and it is objectively mildly swollen compared with the contralateral side which is nontender. There is no dehiscence of the incision or discharge. No guarding or rebound tenderness. CT shows a collection in the area where the patient is having pain. She has no symptoms of a source of the fever elsewhere. She is not septic clinically and well-appearing. We gave IV aztreonam since she is allergic to penicillins, and vancomycin. She did not have any reactions to these medications. Discussed with her surgeon Dr. Nelson, who I spoke with personally after the PA; she advised making an incision through the surgical incision in order to drain the abscess. This was done see the procedure note, it ended up being a seroma that was presumably infected, a culture was sent. Patient tolerated well, and she will follow-up as an outpatient and do dressing/packing changes with the assistance of her . <Dr. Mumtaz Garcia MD - Last Filed: 01/07/23 02:37> Other Procedures Procedure(s): Complex incision and drainage: After informed consent from the patient and sterile prep and drape with chlorhexidine, I locally anesthetized the area of the right lower abdominal surgical incision coinciding with the largest amount of the fluid collection on the CT scan, which was more medial in the right lower pelvis part of the incision, with 9 cc of plain 1% lidocaine. A #10 blade was used to make an incision that was approximately 5 cm, following the surgical incision. I bluntly dissected down through the subcutaneous fat layer, incising portions of it with the scalpel, but bluntly probing into the fluid cavity which was external to the rectus musculature. Upon doing this, bloody fluid was expressed from the cavity, no pus, consistent with a seroma. This was cultured. I expressed as much as I could, massaging from the lateral portion of the incision near the ASIS, to where the seroma extends on the CT. Also irrigated the cavity with 180 cc of sterile saline total, expressing each 60 cc aliquot of sterile saline from the wound separately. The incised area of the wound was then packed with sterile gauze, showing patient and how to repeat this at least daily until they follow-up. Dressed with gauze and ABD pad by nursing. Tolerated well, no complications. Discharge Plan Triage Chief Complaint: General Illness ED Midlevel Provider: Aniya Ureña ED Provider: Mumtaz Garcia Dx/Rx/DC Orders Clinical Impression: Postoperative seroma of subcutaneous tissue after dermatologic procedure, Infected postoperative seroma Instructions: Wound Packing Dc, ED Seroma, Postsurgical Prescriptions: New oxycodone-acetaminophen [oxycodone-acetaminophen] 5-325 mg tablet 1 tab PO Q6H PRN PRN (Reason: Pain) 4 Days Qty: 16 0RF No Action Trulicity 0.75 mg/0.5 mL pen injector 1 mg subcut QWEEK Label Comments: inject 0.5 milliliters ( 0.75 milligrams ) subcutaneously every w... (REFER TO PRESCRIPTION NOTES). (DME) blood-glucose meter Kit See Rx Instructions .ROUTE .MEDSUPPLY Qty: 1 0RF Rx Instructions: As directed Primary Care Provider: Bridgette Valdes Referrals: Dr. Leslie [Other] - As soon as possible Disposition Disposition: Home, Self Care Discharge Date/Time: 01/07/23 00:38
[2023-01-06 19:58] LABS: Anion Gap 7 (5-15); BUN 8 mg/dL (7-18); BUN/Creat Ratio 10.3 RATIO (10-20); Calcium,Total 8.9 mg/dL (8.5-10.1); Chloride 104 mmol/L (98-107); Creatinine, Serum 0.78 mg/dL (0.55-1.02); EST Glomerular Filtration Rate 89 mL/min (>60); Est Glom Filt Rate - Afr Amer 107 mL/min (>60); Estimated Creatinine Clearance 82.48 ml/min; Glucose 123 mg/dL (74-106); Potassium 3.7 mmol/L (3.5-5.1); Sodium Level 137 mmol/L (136-145)
[2023-01-06] MEDS: Ketorolac 15 MG/ML Vial IV (21:11)
[2023-01-06 21:21] VITALS: BP 140/79; PULSE 125; RESP 20; TEMP 38.2; O2SAT 97
[2023-01-06 22:09] VITALS: BP 141/75; PULSE 122; RESP 18; TEMP 38.1; O2SAT 96
[2023-01-06 23:12] VITALS: BP 134/70; PULSE 122; RESP 20; TEMP 37.6; O2SAT 98
[2023-01-06] MEDS: Morphine 4 MG/ML Syringe IV (23:26)
[2023-01-06] MEDS: Acetaminophen 500 MG Tablet 1000 MG PO (23:26)
[2023-01-06] MEDS: Ondansetron 4 MG/2 ML Vial IV (23:32)
[2023-01-07 00:15] VITALS: BP 133/76; PULSE 122; RESP 18; O2SAT 97
[2023-01-07] MEDS: Lidocaine 1% (20 ml mdv) 20 ML Vial 10 ML INFILT (00:26)
== END 2023-01-07 00:38 | disposition home or self-care (01) ==
PROVIDERS: Physician Assistant; Emergency Provider Emergency Medicine; Visit Provider Emergency Medicine
DX: L76.33 Postprocedural seroma of skin and subcutaneous tissue following a dermatologic procedure (principal); R73.03 Prediabetes
CPT/HCPCS: 10140; 10060; 74177; 80048; 85025; 87070; 87075; 87077; 87186; 87205; 96365; 96366; 96367; 96375; 99285; J7050; Q9967; A4216; J2405

== ENCOUNTER 2023-01-09 09:58 | Observation (INO) | payer BC, SELFPAY ==
[2023-01-09] VITALS (9 sets, daily range): BP systolic 80–137; BP diastolic 46–85; PULSE 79–118; RESP 14–18; TEMP 36.3–38; O2SAT 97–100; BMI 27.4; BMI 25.1
--- NOTE | 2023-01-09 10:18 | EKG12_ITS ---
Test Reason : FEVER Blood Pressure : / mmHG Vent. Rate : 104 BPM Atrial Rate : 104 BPM P-R Int : 162 ms QRS Dur : 088 ms QT Int : 354 ms P-R-T Axes : 043 079 044 degrees QTc Int : 465 ms Sinus tachycardia Nonspecific T wave abnormality Abnormal ECG Confirmed by ALIYAH FARAH, IRAIS ([id number]), legal editor JAIMEE QUISPE ([id number]) on 01/14/2023 10:39:16 AM Referred By: Confirmed By:APOLLO LY MD
--- NOTE | 2023-01-09 10:33 | EDS_ITS ---
HPI History of Present Illness Chief Complaint: Fever Narrative Narrative: 37-year-old female past surgical history of abdominoplasty approximately [address] Nelson in [place], [place] presents with feelings of malaise and fatigue, nausea, and fever. She states that approximately 4 weeks ago she had abdominoplasty. On Saturday evening/Saturday, approximately 5 days ago, she started feeling pain around the right lower quadrant of her abdomen where her incision was. She noticed swelling. She was seen in the emergency department on Saturday, [address] was performed which showed abdominal wall abscess/fluid collection. I&D was performed and she was placed on Bactrim pr eviously by her plastic surgeon which was called in the day before. She had only taken 1 prior to her incision and drainage. In review of the chart, it was more of an infected seroma as bloody, more serosanguineous fluid was expressed. She states that she followed up with her plastic surgeon yesterday, and was placed on doxycycline instead, but has not picked it up from the pharmacy. While everything appeared to be in order, and they were allowing any abscesses to drain from the abdominal wall, patient states that she has still been experiencing fever, malaise, and tachycardia. She states that she does not feel well and also thinks that her eyes may be more yellow. She has been taking ibuprofen and Motrin alternatively every 4-6 hours. [facility] Medical History Fibroid uterus Pre-diabetes Home Medications blood-glucose meter #1 ea 01/30/22 [Rx Last Taken Unknown] dulaglutide 0.75 mg/0.5 mL subcutaneous pen injector 1 mg subcut QWEEK 01/30/22 [History Last Taken Unknown] oxycodone-acetaminophen 5 mg-325 mg tablet 1 tab PO Q6H PRN PRN Pain 4 days #16 TABLETS 01/07/23 [Rx Last Taken Unknown] Allergy/AdvReac Type Severity Reaction Status Date / Time amoxicillin [Amoxicillin] Allergy Hives Verified 01/09/23 10:02 cephalexin Allergy Rash Verified 01/09/23 10:02 Family History Other Diabetes High cholesterol Hypertension Thyroid disorder Surgical History H/O abdominoplasty H/O: hysterectomy History of 2 sections Social History Smoking Status: Never smoker alcohol intake: never substance use type: does not use what type of physical activity do you participate in: bicycling, aerobics and weight training frequency: 5-6 times per week ROS ROS ED ROS Narrative Constitutional: Positive fever, no chills. Malaise and fatigue. HEENT: No sore throat. No neck pain. No loss of vision. No rhinorrhea. Cardiovascular: No chest pain. No palpitations, but noticed tachycardia on watch. No pedal edema. Respiratory: No cough, no shortness of breath. Abdominal: Right lower quadrant incisional abdominal pain. Positive nausea. Positive vomiting. Genitourinary: No dysuria. No hematuria. Musculoskeletal: No myalgias. No arthralgias. Neurologic: No headaches. No dizziness. No lightheadedness. Skin: No rash. Thinks sclera are yellow in color. Psychiatric: No depression. No anxiety. EXAM Physical Exam Narrative Exam Narrative: Afebrile. Vital signs noted. HEENT: Normocephalic. Atraumatic. PERRL, EOMI. Neck soft and supple. No point tenderness or step off. No appreciable scleral icterus. Cardiovascular: Positive tachycardia at 110 bpm.. No murmurs, rubs, or gallops appreciated. Respiratory: No tachypnea. Lungs clear to auscultation bilaterally. Gastrointestinal: Abdomen soft, nontender, with normoactive bowel sounds. No rebound or guarding. Positive open incision right lower quadrant of abdomen, no purulent drainage or noted fluctuance. Neurological: Awake. Alert. Nonfocal, nonlateralizing. Skin: No rash. Normal color. No pallor. Musculoskeletal: No pedal edema. Full range of motion extremities. Const Vital Signs: 01/09/23 09:59 01/09/23 10:18 01/09/23 10:47 Temperature 97.4 F L 97.4 F L Temperature Source Temporal Temporal Pulse Rate 110 H 110 H Respiratory Rate 18 18 Blood Pressure 131/74 H 80/46 L Blood Pressure Mean 93 57 Pulse Ox 99 100 Oxygen Delivery Method Room Air Room Air Room Air 01/09/23 11:57 01/09/23 12:09 01/09/23 14:00 Temperature 97.4 F L Temperature Source Oral Pulse Rate 81 79 Respiratory Rate 14 16 Blood Pressure 109/76 124/76 H 117/72 Blood Pressure Mean 87 92 87 Pulse Ox 97 97 Oxygen Delivery Method Room Air Room Air 01/09/23 16:00 Temperature Temperature Source Pulse Rate 90 Respiratory Rate 16 Blood Pressure 137/85 H Blood Pressure Mean 102 Pulse Ox 97 Oxygen Delivery Method Room Air MDM MDM MDM Narrative Medical decision making narrative: Concern is for sepsis. She is afebrile here. She is tachycardic. I will obtain blood cultures although she has had already been on antibiotics in the form of Bactrim. I will obtain a lactic acid, CBC, and a CMP to look for jaundice as she is complaining of yellow sclera. I will also check a lipase although she is nontender in the epigastrium. I do not feel that CT imaging is currently indicated as she was just evaluated by her plastic surgeon yesterday, and there is no swelling of her abdomen, and she recently had incision and drainage performed 2 days ago. In review of her laboratory work, she is now neutropenic at 2.3. This is a significant drop from 3 days ago, but I am unsure as to the cause of this. Hemoglobin stable at 14.4, hematocrit 42.4. Her coagulation studies are negative with an INR of 1.1 and a PTT of 30.2. This was for her sepsis work-up. She is slightly hyponatremic at 134 which may be secondary to dehydration, but BUN normal at 12 and creatinine 1.04. Glucose is elevated appropriately at 114 but she has a normal anion gap of 6. In review of her LFTs, she has an elevated AST of 81, ALT of 242 and alk phos elevated at 464. In review of her chart, she had a cholangiogram in 2013, and in reviewing history with the patient, she had a cholecystectomy performed by Dr. Boyd remotely for gallstones. EKG was obtained and interpreted by myself which demonstrates sinus tachycardia at 104 bpm without ectopy or acute ST changes. No STEMI. She had a transient drop in her systolic blood pressure to the 80s with a low MAP of 55. She was bolused normal saline with significant rise in her blood pressure back to normal. Her pulse rate also dropped to 81, but then she returned being tachycardic just above 100 bpm. Urinalysis is negative for infection. Lactic acid is also normal at 1.8. I am unsure as to the cause of her transaminase hurst as she has had cholecystectomy. I reviewed her CT imaging and there is no pancreatic mass noted. I did add a lipase which was normal. Patient did state that she has been taking a lot of Tylenol over the last 4 weeks. I added an acetaminophen level, but she could have mild liver toxicity from Tylenol use. I discussed the patient with Dr. Donald, the hospitalist. I reviewed her culture and sensitivities and she is growing Mathys cillins sensitive Staphylococcus aureus. She will be started on antibiotics in the form of meropenem. This was chosen because she has reaction to amoxicillin of hives and cephalexin, cephalosporin of a rash. The hospitalist had concern for the transaminase hurst. He would like a CT of the abdomen and pelvis with IV contrast to be performed again because if there is a large abscess she should be sent to a tertiary care center. They state that her plastic surgeon was 3 [facility]. Additionally, Dr. Donald states he discussed the patient with Dr. Wolf, and Dr. Cloud. It was felt that if she had gastric bypass that she would not be able to receive an ERCP should an MRCP that will be performed from the emergency department at Dr. Donald's request were positive. Patient denies having history of gastric bypass surgery. She will go for her MRCP in approximately [address] of the abdomen pelvis was obtained with IV contrast. I reviewed the imaging and reviewed the radiology report. There is only a small residual amount of fluid retained. The results of her MRCP are still pending. At this point in time, patient will be signed out to the oncoming physician, Dr. Anabell Kern, to see the results of the MRCP, and discussed patient with Dr. Donald for admission. The patient states that she had indigestion so she was administered Pepcid 20 mg orally. She had continued nausea, so she was administered and an additional dose of Zofran patient is in stable condition. History & Record Review Discussion w/independent historian: Patient and Family Additional record(s) reviewed:: Prior outpatient record, Prior ED visit and Prior labs Lab Data Attestation: I reviewed the patient's lab results. Labs: Laboratory Results - last 24 hr 01/09/23 01/09/23 01/09/23 10:30 10:30 10:30 WBC 2.3 L RBC 5.17 Hgb 14.4 Hct 42.4 MCV 82.0 MCH 27.9 MCHC 34.0 RDW Std Deviation 37.4 RDW Coeff of Clementina 12.5 Plt Count 153 MPV 10.4 Immature Gran % (Auto) 2.200 H Neut % (Auto) 81.8 H Lymph % (Auto) 5.2 L Fannin % (Auto) 7.8 Eos % (Auto) 1.7 Baso % (Auto) 1.3 H Absolute Neuts (auto) 1.9 L Absolute Lymphs (auto) 0.12 L Nucleated RBC % 0 PT 13.8 INR 1.1 APTT 30.2 Sodium 134 L Potassium 3.7 Chloride 103 Carbon Dioxide 25.0 Anion Gap 6 BUN 12 Creatinine 1.04 H Estim Creat Clear Calc 61.86 Est GFR (MDRD) Af Amer 77 Est GFR (MDRD) Non-Af 63 BUN/Creatinine Ratio 11.5 Glucose 114 H Lactic Acid Calcium 9.2 Total Bilirubin 4.60 H AST 81 H ALT 242 H Alkaline Phosphatase 464 H Total Protein 7.6 Albumin 2.9 L Globulin 4.7 H Albumin/Globulin Ratio 0.6 L Lipase Urine Color Urine Clarity Urine pH Ur Specific [place] Urine Protein Urine Glucose (UA) Urine Ketones Urine Occult Blood Urine Nitrite Urine Bilirubin Urine Urobilinogen Ur Leukocyte Esterase Urine RBC Urine WBC Ur Squamous Epith Cells Urine Bacteria Urine Mucus Acetaminophen 01/09/23 01/09/23 01/09/23 10:30 10:30 10:35 WBC RBC Hgb Hct MCV MCH MCHC RDW Std Deviation RDW Coeff of Clementina Plt Count MPV Immature Gran % (Auto) Neut % (Auto) Lymph % (Auto) Fannin % (Auto) Eos % (Auto) Baso % (Auto) Absolute Neuts (auto) Absolute Lymphs (auto) Nucleated RBC % PT INR APTT Sodium Potassium Chloride Carbon Dioxide Anion Gap BUN Creatinine Estim Creat Clear Calc Est GFR (MDRD) Af Amer Est GFR (MDRD) Non-Af BUN/Creatinine Ratio Glucose Lactic Acid 1.8 Calcium Total Bilirubin AST ALT Alkaline Phosphatase Total Protein Albumin Globulin Albumin/Globulin Ratio Lipase 154 Urine Color Yellow Urine Clarity Clear Urine pH 7.0 Ur Specific [place] 1.005 Urine Protein 15 H Urine Glucose (UA) Normal Urine Ketones Negative Urine Occult Blood 50 H Urine Nitrite Negative Urine Bilirubin Negative Urine Urobilinogen 1 H Ur Leukocyte Esterase Negative Urine RBC 0-5 SEEN Urine WBC 0 SEEN Ur Squamous Epith Cells 0 SEEN Urine Bacteria 0 SEEN Urine Mucus 0 SEEN Acetaminophen 01/09/23 12:37 WBC RBC Hgb Hct MCV MCH MCHC RDW Std Deviation RDW Coeff of Clementina Plt Count MPV Immature Gran % (Auto) Neut % (Auto) Lymph % (Auto) Fannin % (Auto) Eos % (Auto) Baso % (Auto) Absolute Neuts (auto) Absolute Lymphs (auto) Nucleated RBC % PT INR APTT Sodium Potassium Chloride Carbon Dioxide Anion Gap BUN Creatinine Estim Creat Clear Calc Est GFR (MDRD) Af Amer Est GFR (MDRD) Non-Af BUN/Creatinine Ratio Glucose Lactic Acid Calcium Total Bilirubin AST ALT Alkaline Phosphatase Total Protein Albumin Globulin Albumin/Globulin Ratio Lipase Urine Color Urine Clarity Urine pH Ur Specific [place] Urine Protein Urine Glucose (UA) Urine Ketones Urine Occult Blood Urine Nitrite Urine Bilirubin Urine Urobilinogen Ur Leukocyte Esterase Urine RBC Urine WBC Ur Squamous Epith Cells Urine Bacteria Urine Mucus Acetaminophen < 2.0 L Radiography Diagnostic Testing: Clinical Impression(s) from Imaging Studies Abdomen/Pelvis CT 01/09/23 12:36 IMPRESSION: Interval incision and drainage of the fluid collection in the right subcutaneous tissue at the operative site with evidence of a tissue gap. Persistent increased markings in the subcutaneous fat. Electronically Signed: Kevin Vasquez MD at 13:50 EDT Reading Location ID and State: [facility] / [place] , Service support , Discharge Plan Triage Chief Complaint: Fever Other Complaint: Wound ED Provider: Shay Good Dx/Rx/DC Orders Clinical Impression: Infected postoperative seroma, Transient hypotension, Neutropenia, Malaise, Transaminasemia Prescriptions: No Action Trulicity 0.75 mg/0.5 mL pen injector 1 mg subcut QWEEK Label Comments: inject 0.5 milliliters ( 0.75 milligrams ) subcutaneously every w... (REFER TO PRESCRIPTION NOTES). (DME) blood-glucose meter Kit See Rx Instructions .ROUTE .MEDSUPPLY Qty: 1 0RF Rx Instructions: As directed oxycodone-acetaminophen [oxycodone-acetaminophen] 5-325 mg tablet 1 tab PO Q6H PRN PRN (Reason: Pain) 4 Days Qty: 16 0RF Primary Care Provider: Bridgette Valdes Referrals: Bridgette Valdes, [Primary Care Provider] -
[2023-01-09 10:41] LABS: Absolute Lymphocyte Count 0.12 X10^3/uL (0.83-4.51); Absolute Neutrophil Count 1.9 X10^3/uL (2.0-7.7); Basophil# 0.03 X10^3/uL; Basophil% 1.3 % (0-1); Eosinophil# 0.04 X10^3/uL; Eosinophils% 1.7 % (0-5); Hematocrit 42.4 % (37-47); Hemoglobin 14.4 g/dL (12.0-15.0); Lymphocyte # 0.12 X10^3/ul (0.83-4.51); Lymphocyte % 5.2 % (19-41); Mean Corpuscular Hgb 27.9 pg (27.0-32.0); Mean Platelet Vol. 10.4 fl (6.2-12.0); Monocyte# 0.18 X10^3/uL; Monocyte% 7.8 % (0-10); NRBC Flagged by Analyzer 0 % (0-5); Neutrophil # 1.89 X10^3/uL (2.7-7.7); Neutrophil % 81.8 % (47-70); POSITIVE DIFFERENTIAL YES; POSITIVE MORPHOLOGY YES; Platelet Count 153 K/mm3 (150-450); RBC Distribution Width CV 12.5 % (11.6-14.6); RBC Distribution Width SD 37.4 fl (35.1-43.9); Red Blood Count 5.17 M/mm3 (4.2-5.4); White Blood Count 2.3 K/mm3 (4.4-11.0)
[2023-01-09] MEDS: 0.9% Normal Saline 1,000 ML 999 ML IV ×3 (10:42→12:12)
[2023-01-09 10:44] LABS: Differential Indicated SCAN CRITERIA MET
[2023-01-09] MEDS: Ondansetron 4 MG/2 ML Vial IV ×4 (10:45→20:49)
[2023-01-09 10:47] LABS: Bacteria 0 SEEN /hpf (None Seen); Mucous, Urine 0 SEEN /hpf (<or=2+); Squamous Epithelial Cells - UA 0 SEEN /hpf (5-10); White Blood Cells 0 SEEN /hpf (0-5)
[2023-01-09 10:51] LABS: International Normalized Ratio 1.1; Prothrombin Time (Protime)PT. 13.8 SECONDS (11.7-14.9)
[2023-01-09 10:52] LABS: Partial Thromboplast Time 30.2 Seconds (24.1-36.2)
[2023-01-09 10:59] LABS: Color, Urine Yellow (Yellow); Glucose, Dipstick Normal (Normal); Ketone-Dipstick Negative (Negative); Leukocyte Esterase-Dipstick Negative /ul (Negative); Nitrite-Dipstick Negative (Negative); Occult Blood-Urine 50 /ul (Negative); Protein-Dipstick 15 mg/dl (Negative); Specific Gravity, Urine 1.005 (1.002-1.030); Urine Bilirubin Dipstick Negative (Negative); Urine Clarity Clear (Clear); Urine Urobilinogen 1 mg/dl (Normal)
[2023-01-09 11:06] LABS: ALB/GLOB Ratio 0.6 RATIO (0.9-2.4); AST(SGOT) 81 U/L (15-37); Alanine Aminotransfer ALT/SGPT 242 U/L (13-56); Albumin, Serum 2.9 g/dL (3.2-5.0); Alkaline Phosphatase 464 U/L (45-117); Anion Gap 6 (5-15); BUN 12 mg/dL (7-18); BUN/Creat Ratio 11.5 RATIO (10-20); Calcium,Total 9.2 mg/dL (8.5-10.1); Chloride 103 mmol/L (98-107); Creatinine, Serum 1.04 mg/dL (0.55-1.02); EST Glomerular Filtration Rate 63 mL/min (>60); Est Glom Filt Rate - Afr Amer 77 mL/min (>60); Estimated Creatinine Clearance 61.86 ml/min; Globulin 4.7 g/dL (2.2-4.2); Glucose 114 mg/dL (74-106); Potassium 3.7 mmol/L (3.5-5.1); Protein, Total 7.6 g/dL (6.4-8.2); Sodium Level 134 mmol/L (136-145)
[2023-01-09 11:15] LABS: Lactic Acid 1.8 mmol/L (0.4-1.9)
[2023-01-09 11:19] LABS: Red Blood Cells-Urine 0-5 SEEN /hpf (0-5)
[2023-01-09 11:42] LABS: Lipase 154 U/L (73-393)
--- NOTE | 2023-01-09 12:07 | ED.RN ---
PER MD PT TO RECEIVE ONLY 2500 BOLUS
--- NOTE | 2023-01-09 12:36 | CT_ITS ---
STUDY: CT ABDOMEN AND PELVIS WITH CONTRAST REASON FOR EXAM: Female, 37 years old. Abdominal wall abscess FROM ABDOMINAL PLASTY 4 WEEKS AGO. PRIOR HYSTERECTOMY RADIATION DOSAGE (If Supplied By Facility): CTDIvol = ( 13.60 ) mGy, DLP = ( 919.79 ) mGycm TECHNIQUE: Transaxial images were obtained from the dome of the diaphragm to the symphysis pubis without oral contrast. IV 100mL Isovue-300 was administered. Sagittal and coronal images were reconstructed. Individualized dose optimization techniques were used for this CT. COMPARISON: Comparison is made with prior study dated January 06, 2023. FINDINGS: The visualized lung bases are unremarkable. The visualized portions of the heart are within normal limits. Normal liver. The gallbladder is not visualized and most likely status post cholecystectomy. Normal spleen. Normal pancreas. Normal bilateral adrenal glands. Normal right kidney. Normal left kidney. Normal visualized stomach. Normal small intestine. Normal colon. The appendix is visualized and appears normal. Normal abdominal aorta. Normal inferior vena cava. There is borderline retroperitoneal lymphadenopathy with enlarged nodes no greater than 10mm in the short axis diameter. Normal urinary bladder. There is absence of the uterus consistent with a prior hysterectomy. The patient is status post abdominal plasty. Increased markings are seen within the subcutaneous tissues overlying the anterior abdominal wall. The previously seen small fluid collection in the deep right subcutaneous region deep to the operative site has been drained. A tissue gap is seen at that site. Residual 1.2 sign by 3.6 cm linear fluid collection is seen overlying the right iliac crest. Normal osseous structures. CT/Abdomen/Pelvis W IV Cont ONLY IMPRESSION: Interval incision and drainage of the fluid collection in the right subcutaneous tissue at the operative site with evidence of a tissue gap. Persistent increased markings in the subcutaneous fat. Electronically Signed: Kevin Vasquez MD at 13:50 EDT ,
--- NOTE | 2023-01-09 12:36 | MRI_ITS ---
STUDY: MR CHOLANGIOPANCREATOGRAPHY (MRCP) REASON FOR EXAM: Female, 37 years old. abdominoplasty 4 weeks ago, nausea,fever,,5 days ago RLQ pain,,I and D abd wall abscess elevated lft''s TECHNIQUE: Standard MRCP technique was utilized. 3-D postprocessing images were obtained. COMPARISON: 01.09.23 ct. FINDINGS: Subcutaneous fluid. Focal wall thickening of the antrum of stomach. This can suggest a gastritis. Gall Bladder: There is non-visualization of the gallbladder, which may be secondary to either contraction or a prior cholecystectomy. Cystic duct: Normal with no demonstrated fixed filling defect. Intrahepatic ducts: Normal visualized intrahepatic ducts with no demonstrated fixed filling defect, dilation or stricture. Common hepatic duct: Normal with no demonstrated fixed filling defect, dilation or stricture. Common bile duct: Normal with no demonstrated fixed filling defect, dilation or stricture. Pancreatic duct: Normal with no demonstrated fixed filling defect, dilation or stricture. MRI/MRCP Abdomen without Contrast IMPRESSION: Subcutaneous fluid. Gastritis Electronically Signed: Duane Goodwin MD at 16:50 EDT ,
[2023-01-09 13:39] LABS: Acetaminophen (Tylenol) Level < 2.0 ug/mL (10.0-30.0)
[2023-01-09] MEDS: Famotidine 20 MG Tablet 40 MG PO (15:21)
--- NOTE | 2023-01-09 17:03 | NURSING ---
MED SURG OBS TERELETSKY TRANSAMINITIS
--- NOTE | 2023-01-09 17:10 | NURSING ---
[id number]
--- NOTE | 2023-01-09 19:18 | PCM.HP.STD ---
HPI - General General Date of Admission: 01/09/23 Date of Service: 01/09/23 Chief Complaint: Fatigue, malaise, nausea, and fever HPI Narrative VANESSA SMALL, is a 37 F who presents to the emergency room at [facility] with complaints of fever, chills, and nausea as well as malaise over the past several days. Patient was seen here 3 days ago in the emergency room and she underwent drainage in the ER of a pocket of fluid associated with an incision from an abdominoplasty approximately 4 weeks ago. Cultures were taken of the fluid and it grew out methicillin sensitive Staph aureus. Patient had been placed on Bactrim by the emergency room, she felt that she was not tolerating the Bactrim due to nausea and asked her plastic surgeon for a different antibiotic and he called in what is probably doxycycline but she did not pick this up. Work-up in the emergency room included labs which revealed a white blood cell count of 2.3, chemistry profile revealed an elevated creatinine 1.04, patient's liver enzymes were elevated with a bilirubin of 4.6, AST of 81, ALT of 242, alkaline phosphatase of 464. Patient had a CT of her abdomen which showed interval incision and drainage of the fluid collection in the right subcutaneous tissue at the operative site with evidence of a tissue gap with residual 1.2 cm x 3.6 cm linear fluid collection seen overlying the right iliac crest. Patient had an MRCP performed which showed subcutaneous fluid and evidence for possible gastritis of the antrum of the stomach. Patient will be placed in observation status status for hepatitis, and acute hepatitis profile was ordered, patient will be placed on IV Vibramycin for her abdominal wound, labs will be monitored and she will be given IV fluids and she will see gastroenterology tomorrow. [facility] Medical History (Updated 01/09/23 @ 18:08 by Loly Castle) Diabetes type 2, controlled Fibroid uterus Pre-diabetes Home Medications blood-glucose meter #1 ea 01/30/22 [Rx Last Taken Unknown] dulaglutide 0.75 mg/0.5 mL subcutaneous pen injector 1 mg subcut TU DIABETES 01/30/22 [History Last Taken Unknown] Allergy/AdvReac Type Severity Reaction Status Date / Time amoxicillin [Amoxicillin] Allergy Hives Verified 01/09/23 10:02 cephalexin Allergy Rash Verified 01/09/23 10:02 Family History Other Diabetes High cholesterol Hypertension Thyroid disorder Surgical History H/O abdominoplasty H/O: hysterectomy History of 2 sections Social History Smoking Status: Never smoker alcohol intake: never substance use type: does not use what type of physical activity do you participate in: bicycling, aerobics and weight training frequency: 5-6 times per week ROS Constitutional Constitutional: Reports chills, fatigue, fever(s) and malaise; Denies anorexia, change in weight, night sweats or weakness Eyes Eyes: Denies blurry vision, change in vision, discharge from eye(s) or eye pain Cardiovascular Cardiovascular: Denies chest pain, claudication, dyspnea on exertion, edema, lightheadedness, orthopnea or palpitations Respiratory/Chest Respiratory/Chest: Denies cough, hemoptysis, productive cough, shortness of breath at rest or shortness of breath with exertion Gastrointestinal Gastrointestinal: Reports nausea; Denies abdominal pain, constipation, diarrhea, hematemesis, hematochezia, melena or vomiting Genitourinary Genitourinary: Denies difficulty urinating, dysuria, hematuria, nocturia, urinary frequency, urinary hesitancy, urinary incontinence or urinary urgency Musculoskeletal Musculoskeletal: Denies back pain, joint pain, joint stiffness, joint swelling, myalgias or neck pain Neurologic Neurologic: Denies abnormal gait, abnormal speech, confusion, dizziness, focal weakness, headache(s), loss of vision, numbness, other visual disturbances, paresthesias, syncope or tingling Psychiatric Psychiatric: Denies anxiety, cognitive impairment, depression, irritability, mood swings or suicidal ideation Endocrine Endocrinology: Denies change in body appearance, cold intolerance, excessive sweating, heat intolerance, polydipsia or polyuria Hematologic/Lymphatic Hematologic/Lymphatic: Denies none, anemia, easy bleeding, easy bruising or lymphadenopathy Allergic/Immunologic Allergic/Immunologic: Denies rhinitis, urticaria, eczemia or asthma Vital Signs Vital Signs Vital Signs: 01/09/23 09:59 01/09/23 10:18 01/09/23 10:47 Temperature 97.4 F L 97.4 F L Temperature Source Temporal Temporal Pulse Rate 110 H 110 H Respiratory Rate 18 18 Blood Pressure 131/74 H 80/46 L Blood Pressure Mean 93 57 Pulse Ox 99 100 Oxygen Delivery Method Room Air Room Air Room Air 01/09/23 11:57 01/09/23 12:09 01/09/23 14:00 Temperature 97.4 F L Temperature Source Oral Pulse Rate 81 79 Respiratory Rate 14 16 Blood Pressure 109/76 124/76 H 117/72 Blood Pressure Mean 87 92 87 Pulse Ox 97 97 Oxygen Delivery Method Room Air Room Air 01/09/23 16:00 01/09/23 16:58 01/09/23 18:57 Temperature 97.8 F 98.3 F Temperature Source Temporal Oral Pulse Rate 90 87 Respiratory Rate 16 14 Blood Pressure 137/85 H 128/78 H Blood Pressure Mean 102 94 Pulse Ox 97 99 Oxygen Delivery Method Room Air Room Air Weight Weight: 70.307 kg Body Mass Index (BMI) 27.4 Physical Exam Const alert and oriented x3 Constitutional Narrative: Patient appears unwell with complaints of malaise and fever, she is alert and oriented x3, she appears her stated age General Appearance: cooperative, well kempt and well developed Orientation / Consciousness: awake, oriented to person, oriented to place and oriented to time HEENT normocephalic, head/scalp atraumatic, hearing grossly normal bilaterally and moist oral mucous membranes Eyes PERRL, EOMs intact bilaterally and conjunctivae normal Neck supple, no JVD, thyroid normal and no carotid bruits General: trachea midline Resp normal respiratory effort, no retractions, no use of accessory muscles and clear to auscultation bilaterally Auscultation: Negative for rales, rhonchi or wheezes Cardio regular rate, regular rhythm, S1 normal heart sound, S2 normal heart sound, no murmurs, no rub and no gallops GI GI Narrative: There is a surgical incision noted over the patient's lower abdominal area, the abdomen is not distended, patient has bowel sounds, there is no visible drainage from the area. Extremity no clubbing, cyanosis or edema Skin no rashes or lesions noted General Skin Exam: no breakdown Neuro oriented x3, CN's II-XII intact bilaterally, moves all extremities, no focal motor deficits and no sensory deficits noted Sensorium / Orientation: awake, alert, oriented to person, oriented to place and oriented to time Speech: speech normal Psych affect normal Results Lab / Micro Data Result Diagrams: 01/09/23 10:30 01/09/23 10:30 Labs: Laboratory Results - last 24 hr 01/09/23 10:30: WBC 2.3 L, RBC 5.17, Hgb 14.4, Hct 42.4, MCV 82.0, MCH 27.9, MCHC 34.0, RDW Std Deviation 37.4, RDW Coeff of Clementina 12.5, Plt Count 153, MPV 10.4, Immature Gran % (Auto) 2.200 H, Neut % (Auto) 81.8 H, Lymph % (Auto) 5.2 L, [place] % (Auto) 7.8, Eos % (Auto) 1.7, Baso % (Auto) 1.3 H, Absolute Neuts (auto) 1.9 L, Absolute Lymphs (auto) 0.12 L, Nucleated RBC % 0 01/09/23 10:30: PT 13.8, INR 1.1, APTT 30.2 01/09/23 10:30: Sodium 134 L, Potassium 3.7, Chloride 103, Carbon Dioxide 25.0, Anion Gap 6, BUN 12, Creatinine 1.04 H, Estim Creat Clear Calc 61.86, Est GFR (MDRD) Af Amer 77, Est GFR (MDRD) Non-Af 63, BUN/Creatinine Ratio 11.5, Glucose 114 H, Calcium 9.2, Total Bilirubin 4.60 H, AST 81 H, ALT 242 H, Alkaline Phosphatase 464 H, Total Protein 7.6, Albumin 2.9 L, Globulin 4.7 H, Albumin/Globulin Ratio 0.6 L 01/09/23 10:30: Lactic Acid 1.8 01/09/23 10:30: Lipase 154 01/09/23 10:35: Urine Color Yellow, Urine Clarity Clear, Urine pH 7.0, Ur Specific Wilson 1.005, Urine Protein 15 H, Urine Glucose (UA) Normal, Urine Ketones Negative, Urine Occult Blood 50 H, Urine Nitrite Negative, Urine Bilirubin Negative, Urine Urobilinogen 1 H, Ur Leukocyte Esterase Negative, Urine RBC 0-5 SEEN, Urine WBC 0 SEEN, Ur Squamous Epith Cells 0 SEEN, Urine Bacteria 0 SEEN, Urine Mucus 0 SEEN 01/09/23 12:37: Acetaminophen < 2.0 L Micro: Microbiology 01/09/23 10:55 Nasal Secretion SARS-CoV-2 & FLU Antigen (Rapid) - Final Radiology Impression MRCP 01/09/23 12:36 IMPRESSION: Subcutaneous fluid. Gastritis Electronically Signed: Duane Goodwin MD at 16:50 EDT , Abdomen/Pelvis CT 01/09/23 12:36 IMPRESSION: Interval incision and drainage of the fluid collection in the right subcutaneous tissue at the operative site with evidence of a tissue gap. Persistent increased markings in the subcutaneous fat. Electronically Signed: Kevin Vasquez MD at 13:50 EDT , Assessment & Plan Assessment/Plan (1) Infected postoperative seroma: PLAN: Plan 1. Acute hepatitis-etiology unclear, it is unclear whether this could be from medication versus viral hepatitis, there is no evidence of a stone in the bile duct. Patient will be placed in observation status on MedSurg 3, IV fluids will be administered, she will have repeat labs drawn in the morning, patient will have a viral hepatitis panel ordered, she will be seen by gastroenterology. #2 infected postoperative seroma of the abdominal wall from abdominoplasty approximately 4 weeks ago-I have elected to continue the patient on Vibramycin, I will give this IV as not to cause stomach upset #3 type 2 diabetes-patient's blood sugars will be monitored and sliding scale insulin will be used #4 leukopenia-etiology unclear at this point, CBC will be rechecked tomorrow Total clinical time spent by myself addressing the patient's medical issues, reviewing all of her data, and collaborating with patient's care team: 75 minutes Charges/Coding Visit Charges Inpatient E&M: 60080 [facility] Hosp L3
[2023-01-09] MEDS: 0.9% Normal Saline 1,000 ML 150 ML IV (20:44)
[2023-01-09] MEDS: Ketorolac 30 MG/ML Syringe IV (20:49)
[2023-01-09] MEDS: 0.9% Saline Lock 10 ML Syringe IV (20:49)
[2023-01-09 23:55] LABS: Bedside Glucose 108 mg/dL (74-106)
[2023-01-10] MEDS: Ketorolac 30 MG/ML Syringe IV ×2 (02:59→09:52)
[2023-01-10] MEDS: 0.9% Saline Lock 10 ML Syringe IV ×2 (02:59→09:52)
[2023-01-10 03:00] VITALS: BP 121/69; PULSE 108; RESP 16; TEMP 36.9; O2SAT 99
[2023-01-10] MEDS: 0.9% Normal Saline 1,000 ML 150 ML IV ×3 (03:54→15:34)
[2023-01-10 06:38] LABS: Absolute Lymphocyte Count 0.32 X10^3/uL (0.83-4.51); Absolute Neutrophil Count 1.5 X10^3/uL (2.0-7.7); Basophil# 0.04 X10^3/uL; Basophil% 1.7 % (0-1); Hematocrit 33.1 % (37-47); Hemoglobin 11.2 g/dL (12.0-15.0); Lymphocyte # 0.32 X10^3/ul (0.83-4.51); Lymphocyte % 13.8 % (19-41); Mean Corp Hgb Conc 33.8 g/dL (32-36); Mean Corpuscular Hgb 27.8 pg (27.0-32.0); Mean Corpuscular Volume 82.1 fL (81-99); Mean Platelet Vol. 10.4 fl (6.2-12.0); Monocyte% 17.2 % (0-10); NRBC Flagged by Analyzer 0 % (0-5); Neutrophil # 1.51 X10^3/uL (2.7-7.7); Neutrophil % 65.1 % (47-70); POSITIVE DIFFERENTIAL YES; POSITIVE MORPHOLOGY YES; Platelet Count 144 K/mm3 (150-450); RBC Distribution Width CV 12.9 % (11.6-14.6); RBC Distribution Width SD 38.9 fl (35.1-43.9); Red Blood Count 4.03 M/mm3 (4.2-5.4); White Blood Count 2.3 K/mm3 (4.4-11.0)
[2023-01-10 06:53] LABS: Differential Indicated SCAN CRITERIA MET
[2023-01-10 06:57] LABS: Differential Comment SCANNED
[2023-01-10] MEDS: Famotidine 20 MG Tablet 40 MG PO (06:58)
[2023-01-10 07:05] LABS: Bedside Glucose 90 mg/dL (74-106)
[2023-01-10 07:09] LABS: ALB/GLOB Ratio 0.6 RATIO (0.9-2.4); AST(SGOT) 72 U/L (15-37); Alanine Aminotransfer ALT/SGPT 155 U/L (13-56); Albumin, Serum 2.3 g/dL (3.2-5.0); Alkaline Phosphatase 482 U/L (45-117); Anion Gap 6 (5-15); BUN 9 mg/dL (7-18); BUN/Creat Ratio 12.9 RATIO (10-20); Calcium,Total 8.2 mg/dL (8.5-10.1); Chloride 111 mmol/L (98-107); EST Glomerular Filtration Rate 100 mL/min (>60); Est Glom Filt Rate - Afr Amer 122 mL/min (>60); Estimated Creatinine Clearance 91.91 ml/min; Globulin 3.7 g/dL (2.2-4.2); Glucose 94 mg/dL (74-106); Potassium 3.8 mmol/L (3.5-5.1); Sodium Level 138 mmol/L (136-145)
[2023-01-10 09:40] VITALS: BP 121/79; PULSE 95; RESP 18; TEMP 36.7; O2SAT 98
--- NOTE | 2023-01-10 10:30 | WOUNDNOTE ---
wound photo: right lower abdomen
[2023-01-10] MEDS: Docusate Sodium 100 MG Capsule PO (11:27)
[2023-01-10] MEDS: levoFLOXacin 500 MG Tablet PO (11:27)
[2023-01-10 11:50] LABS: Bedside Glucose 111 mg/dL (74-106)
[2023-01-10] MEDS: Pantoprazole Sodium 40 MG Tablet PO (15:33)
[2023-01-10 15:40] VITALS: BP 124/85; PULSE 92; RESP 18; TEMP 36.8; O2SAT 98
[2023-01-10 16:01] LABS: Bedside Glucose 114 mg/dL (74-106)
--- NOTE | 2023-01-10 17:43 | CON.PCM.GI_ITS ---
HPI Consult Data Date of Consult: 01/10/23 HPI Narrative Reason for Consultation: Elevated liver function test HPI Narrative: VANESSA SMALL, is a 37-year-old female past surgical history of abdominoplasty approximately [address] Nelson in [place], [place] presents with feelings of malaise and fatigue, nausea, and fever.? She states that approximately 4 weeks ago she had abdominoplasty.? On Saturday evening/Saturday, approximately 5 days ago, she started feeling pain around the right lower quadrant of her abdomen where her incision was.? She noticed swelling.? She was seen in the emergency department on Saturday, [address] was performed which showed abdominal wall abscess/fluid collection.? I&D was performed and she was placed on Bactrim previously by her plastic surgeon which was called in the day before.? She had only taken 1 prior to her incision and drainage.? In review of the chart, it was more of an infected seroma as bloody, more serosanguineous fluid was expressed.? She states that she followed up with her plastic surgeon yesterday, and was placed on doxycycline instead, but has not picked it up from the pharmacy.? While everything appeared to be in order, and they were allowing any abscesses to drain from the abdominal wall, patient states that she has still been experiencing fever, malaise, and tachycardia.? She states that she does not feel well and also thinks that her eyes may be more yellow.? She has been taking ibuprofen and Motrin alternatively every 4-6 hours. I was called to see her due to her elevated liver enzymes. Her bilirubin was 4.6, alkaline phosphatase of 450, AST of 100 and ALT of 153. She had not had any Tylenol products. She did receive 3 doses of Bactrim approximately 3 days ago and also received IV antibiotics after she underwent incision and drainage. Currently she is on doxycycline. Her laboratory analysis is improving with her bilirubin decreased down to 3.9, alkaline phosphatase of 435, AST of 71 and ALT of 135. She still has some mild abdominal pain. She was having some intermittent fevers but that seems to have resolved. She is tolerating a diet and her pain is controlled with Toradol. [facility] Medical History (Updated 01/10/23 @ 17:[address] Vincent Friend, DO) Diabetes type 2, controlled Fibroid uterus Pre-diabetes Home Medications blood-glucose meter #1 ea 01/30/22 [Rx Last Taken Unknown] dulaglutide 0.75 mg/0.5 mL subcutaneous pen injector 1 mg subcut TU DIABETES 01/30/22 [History Last Taken Unknown] Allergy/AdvReac Type Severity Reaction Status Date / Time amoxicillin [Amoxicillin] Allergy Hives Verified 01/09/23 10:02 cephalexin Allergy Rash Verified 01/09/23 10:02 Family History Other Diabetes High cholesterol Hypertension Thyroid disorder Surgical History H/O abdominoplasty H/O: hysterectomy History of 2 sections Social History Smoking Status: Never smoker alcohol intake: never substance use type: does not use what type of physical activity do you participate in: bicycling, aerobics and weight training frequency: 5-6 times per week ROS Constitutional Constitutional: Reports chills, fatigue, fever(s) and malaise; Denies anorexia, change in weight, night sweats or weakness Eyes Eyes: Denies blurry vision, change in vision, discharge from eye(s) or eye pain Cardiovascular Cardiovascular: Denies chest pain, claudication, dyspnea on exertion, edema, lightheadedness, orthopnea or palpitations Respiratory/Chest Respiratory/Chest: Denies cough, hemoptysis, productive cough, shortness of breath at rest or shortness of breath with exertion Gastrointestinal Gastrointestinal: Reports nausea; Denies abdominal pain, constipation, diarrhea, hematemesis, hematochezia, melena or vomiting Genitourinary Genitourinary: Denies difficulty urinating, dysuria, hematuria, nocturia, urinary frequency, urinary hesitancy, urinary incontinence or urinary urgency Musculoskeletal Musculoskeletal: Denies back pain, joint pain, joint stiffness, joint swelling, myalgias or neck pain Neurologic Neurologic: Denies abnormal gait, abnormal speech, confusion, dizziness, focal weakness, headache(s), loss of vision, numbness, other visual disturbances, paresthesias, syncope or tingling Psychiatric Psychiatric: Denies anxiety, cognitive impairment, depression, irritability, mood swings or suicidal ideation Endocrine Endocrinology: Denies change in body appearance, cold intolerance, excessive sweating, heat intolerance, polydipsia or polyuria Hematologic/Lymphatic Hematologic/Lymphatic: Denies none, anemia, easy bleeding, easy bruising or l ymphadenopathy Allergic/Immunologic Allergic/Immunologic: Denies rhinitis, urticaria, eczemia or asthma Physical Exam Const alert and oriented x3 Constitutional Narrative: Patient appears unwell with complaints of malaise and fever, she is alert and oriented x3, she appears her stated age General Appearance: cooperative, well kempt and well developed Orientation / Consciousness: awake, oriented to person, oriented to place and oriented to time HEENT normocephalic, head/scalp atraumatic, hearing grossly normal bilaterally and moist oral mucous membranes Eyes PERRL, EOMs intact bilaterally and conjunctivae normal Neck supple, no JVD, thyroid normal and no carotid bruits General: trachea midline Resp normal respiratory effort, no retractions, no use of accessory muscles and clear to auscultation bilaterally Auscultation: Negative for rales, rhonchi or wheezes Cardio regular rate, regular rhythm, S1 normal heart sound, S2 normal heart sound, no murmurs, no rub and no gallops GI GI Narrative: There is a surgical incision noted over the patient's lower abdominal area, the abdomen is not distended, patient has bowel sounds, there is no visible drainage from the area. Extremity no clubbing, cyanosis or edema Skin no rashes or lesions noted General Skin Exam: no breakdown Neuro oriented x3, CN's II-XII intact bilaterally, moves all extremities, no focal motor deficits and no sensory deficits noted Sensorium / Orientation: awake, alert, oriented to person, oriented to place and oriented to time Speech: speech normal Psych affect normal Lab / Micro Data Result Diagrams: 01/10/23 06:25 01/10/23 06:25 Labs: Laboratory Results - last 24 hr 01/09/23 10:30: Diff Path Review February01/09/23 23:31: POC Glucose 108 H 01/10/23 06:19: POC Glucose 90 01/10/23 06:25: WBC 2.3 L, RBC 4.03 L, Hgb 11.2 L, Hct 33.1 L, MCV 82.1, MCH 2 7.8, MCHC 33.8, RDW Std Deviation 38.9, RDW Coeff of Clementina 12.9, Plt Count 144 L, MPV 10.4, Immature Gran % (Auto) 2.200 H, Neut % (Auto) 65.1, Lymph % (Auto) 13.8 L, [place] % (Auto) 17.2 H, Eos % (Auto) 0.0, Baso % (Auto) 1.7 H, Absolute Neuts (auto) 1.5 L, Absolute Lymphs (auto) 0.32 L, Nucleated RBC % 0, Differential Comment SCANNED, Diff Path Review February foll 01/10/23 06:25: Sodium 138, Potassium 3.8, Chloride 111 H, Carbon Dioxide 21.0, Anion Gap 6, BUN 9, Creatinine 0.70, Estim Creat Clear Calc 91.91, Est GFR (MDRD) Af Amer 122, Est GFR (MDRD) Non-Af 100, BUN/Creatinine Ratio 12.9, Glu cose 94, Calcium 8.2 L, Total Bilirubin 3.90 H, AST 72 H, ALT 155 H, Alkaline Phosphatase 482 H, Total Protein 6.0 L, Albumin 2.3 L, Globulin 3.7, Albumin/Globulin Ratio 0.6 L 01/10/23 11:31: POC Glucose 111 H 01/10/23 15:39: POC Glucose 114 H Micro: Microbiology 01/09/23 10:35 Urine, Clean Catch Urine Culture - Preliminary Culture exhibits no growth. Assessment & Plan Assessment/Plan (1) Cholestatic hepatitis: PLAN: I think she has postoperative cholestasis. Intrahepatic cholestasis?occasionally develops after major surgery, especially after abdominal or cardiovascular procedures?(benign postoperative intrahepatic cholestasis). The pathogenesis is unknown, but the condition usually resolves slowly and spontaneously. The typical presentation of symptoms includes nausea, fatigue and pruritus followed by dark urine and jaundice. The liver enzyme pattern is cholestatic with prominence of alkaline phosphatase and bilirubin elevations. The illness can be prolonged. This pattern of injury is typical of drug induced liver injury, accounting for at least one-third of cases. The time to onset of cholestatic hepatitis is typically 2 to 12 weeks, but may occur up to one year after starting medication. Her viral hepatitis studies are pending. She does not have the presentation of a acute hepatitis a or B. Hepatitis C is not usually acute and displays any symptoms of acute illness and cannot get hepatitis D without having hepatitis B first. She is vaccinated against hepatitis B. Also different diagnosis would include ischemic hepatitis, autoimmune hepatitis. I do not suspect any other disease processes. I will send biochemical analysis. Okay with her continuing antibiotics at this time for her infected seroma. I would avoid Tylenol products. If she goes home today then she should get repeat blood work in approximately 2 days 6 days and 10 days from discharge. She was told to also avoid alcohol. Charges/Coding Visit Charges Inpatient E&M: 59064 Init Hosp L3
[2023-01-10] MEDS: Glucerna Shake 120 ML LIQUID PO (18:07)
--- NOTE | 2023-01-10 18:29 | DCINST_ITS ---
Discharge Instructions Diet Discharge Diet: 1800 Calorie Control Diet Activity Discharge Activity: Return to Normal Activity Weight Bearing Status: Full weight bearing Follow Up Care Test Results: Test results from this visit will be discussed in further detail at your follow- up appointment, if applicable. Discharge Plan Admission Admit Date/Time: 01/09/23 16:58 Primary Reason for Your Visit: Jaundice Attending Provider: John Donald Primary Care Provider: Bridgette Valdes Discharge Orders/Prescriptions Prescriptions: New levofloxacin 500 mg Tablet 500 mg PO DAILY@0600 Qty: 7 0RF Rx Instructions: start on 01/11/23 ketorolac 10 mg tablet 10 mg PO Q6H PRN (Reason: pain) 5 Days Qty: 20 0RF Continued dulaglutide 0.75 mg/0.5 mL pen injector 1 mg subcut TU Label Comments: inject 0.5 milliliters ( 0.75 milligrams ) subcutaneously every w... (REFER TO PRESCRIPTION NOTES). No Action (DME) blood-glucose meter Kit See Rx Instructions .ROUTE .MEDSUPPLY Qty: 1 0RF Rx Instructions: As directed Referrals / Follow Up: Bridgette Valdes, [Primary Care Provider] - Within 1 Week (get repeat CBC and Liver profile performed) Disposition Disposition (needs filled in before D/C Order can be placed): Home, Self Care
--- NOTE | 2023-01-10 18:41 | PCM.DC.SUM ---
Providers Date of Admission: 01/09/23 Date of Discharge: 01/10/23 Primary Care Physician: Dr. Bridgette Valdes, DO Consultations 01/09/23 17:53 Consult: Gastroenterology Routine Consulting Provider: [facility] Reason for Consult: hepatitis EMERGENT Consult: No MD Notified: Yes Date Notified: 01/09/23 Time Notified: 17:01 Method of Notification: Verbal 01/09/23 19:32 Consult: Onc/Wound/syrup mixer assistant Routine Comment: Reason for Consult:: abdominal wound Reason For Visit: HEPATITIS, CELLULITIS Diagnosis Discharge Diagnosis (1) Cholestatic hepatitis: Status: Acute Code(s): K75.89 - Other specified inflammatory liver diseases Plan 1. Acute cholestatic hepatitis-etiology unclear #2 infected postoperative seroma of the abdominal wall from abdominoplasty approximately 4 weeks ago, present on admission-I have elected to continue the patient on Vibramycin, I will give this IV as not to cause stomach upset #3 type 2 diabetes-patient's blood sugars will be monitored and sliding scale insulin will be used #4 leukopenia-etiology unclear at this point, CBC will be rechecked tomorrow Total clinical time spent by myself addressing the patient's medical issues, reviewing all of her data, and collaborating with patient's care team: 75 minutes Medications at Discharge Home Medications blood-glucose meter #1 ea 01/30/22 dulaglutide 0.75 mg/0.5 mL subcutaneous pen injector 1 mg subcut TU DIABETES 01/30/22 ketorolac 10 mg tablet 10 mg PO Q6H PRN pain 5 days #20 tabs 01/10/23 levofloxacin 500 mg tablet 500 mg PO DAILY@0600 #7 tabs 01/10/23 Hospital Course Operations None Procedures None Summary of Care Provided Minutes Spent on Discharge: 31 Hospital Course: This 37-year-old female was seen in the emergency room at [facility] with complaints of malaise, fever, and nausea, labs were obtained which showed elevated liver enzymes, MRCP was performed as well as a CT of the abdomen, there was no evidence of obstructive jaundice, patient was medicated for nausea and antibiotics were continued for an infected abdominal seroma which had been diagnosed as an outpatient so it days prior. Patient was admitted to [place] [id number] and seen in consultation by gastroenterology, the next day, patient's liver enzymes were repeated and they were somewhat better and the patient's nausea was better. It was felt that the patient was stable for discharge with follow-up next week with her PCP to repeat her liver profile. The exact cause of her jaundice and elevated liver enzymes was not known, it was speculated it could be cholestatic hepatitis with jaundice. Additional note, patient was seen by the wound nurse during her hospital stay because she had packing and an abdominal wound that had been drained in the emergency room several days prior, it was set up that she would follow-up with the wound center as an outpatient. On 01/10/2023, patient was seen and examined: On examination she appeared in good health and spirits, she does not appear to be in any distress. Vital signs as documented. Skin warm and dry and without overt rashes. Neck without JVD, thyroid appears normal, trachea is midline, neck is supple. Lungs clear, normal air movement was noted. Heart exam notable for regular rhythm, normal sounds and absence of murmurs, rubs or gallops. Abdomen-there is noted to be an abdominal wound over the right lower mid abdominal area, there was packing visible in the wound, bowel sounds are present in all 4 quadrants. Extremities nonedematous, no cyanosis was noted, no clubbing was noted. Neuro: Cranial nerves II through XII are grossly intact, no focal motor deficits were noted, sensation to light touch and pinprick is intact, motor exam 5/5 throughout. Psych: Patient is alert and oriented x3, she does not appear anxious or depressed, she does not appear agitated. Patient was felt stable for discharge home on 01/10/2023 Weight / BMI Weight Weight: 64.41 kg Body Mass Index (BMI) 25.1 ABG / Lab / Microbiology Data Result Diagrams: 01/10/23 06:25 01/10/23 06:25 Laboratory: Laboratory Results - last 24 hr 01/09/23 10:30: Diff Path Review February01/09/23 23:31: POC Glucose 108 H 01/10/23 06:19: POC Glucose 90 01/10/23 06:25: WBC 2.3 L, RBC 4.03 L, Hgb 11.2 L, Hct 33.1 L, MCV 82.1, MCH 27.8, MCHC 33.8, RDW Std Deviation 38.9, RDW Coeff of Clementina 12.9, Plt Count 144 L, MPV 10.4, Immature Gran % (Auto) 2.200 H, Neut % (Auto) 65.1, Lymph % (Auto) 13.8 L, [place] % (Auto) 17.2 H, Eos % (Auto) 0.0, Baso % (Auto) 1.7 H, Absolute Neuts (auto) 1.5 L, Absolute Lymphs (auto) 0.32 L, Nucleated RBC % 0, Differential Comment SCANNED, Diff Path Review February foll 01/10/23 06:25: Sodium 138, Potassium 3.8, Chloride 111 H, Carbon Dioxide 21.0, Anion Gap 6, BUN 9, Creatinine 0.70, Estim Creat Clear Calc 91.91, Est GFR (MDRD) Af Amer 122, Est GFR (MDRD) Non-Af 100, BUN/Creatinine Ratio 12.9, Glucose 94, Calcium 8.2 L, Total Bilirubin 3.90 H, AST 72 H, ALT 155 H, Alkaline Phosphatase 482 H, Total Protein 6.0 L, Albumin 2.3 L, Globulin 3.7, Albumin/Globulin Ratio 0.6 L 01/10/23 11:31: POC Glucose 111 H 01/10/23 15:39: POC Glucose 114 H Microbiology: Microbiology 01/09/23 10:35 Urine, Clean Catch Urine Culture - Preliminary Culture exhibits no growth. 01/09/23 10:55 Nasal Secretion SARS-CoV-2 & FLU Antigen (Rapid) - Final D/C Instructions Discharge Diet: 1800 Calorie Control Diet Weight Bearing Status: Full weight bearing Meaningful Use Info Meaningful Use Diagnoses (Choose all that apply): None applicable Discharge Plan Admission Admit Date/Time: 01/09/23 16:58 Primary Reason for Your Visit: Jaundice Attending Provider: John Donald Primary Care Provider: Bridgette Valdes Discharge Orders/Prescriptions Prescriptions: New levofloxacin 500 mg Tablet 500 mg PO DAILY@0600 Qty: 7 0RF Rx Instructions: start on 01/11/23 ketorolac 10 mg tablet 10 mg PO Q6H PRN (Reason: pain) 5 Days Qty: 20 0RF Continued dulaglutide 0.75 mg/0.5 mL pen injector 1 mg subcut TU Label Comments: inject 0.5 milliliters ( 0.75 milligrams ) subcutaneously every w... (REFER TO PRESCRIPTION NOTES). No Action (DME) blood-glucose meter Kit See Rx Instructions .ROUTE .MEDSUPPLY Qty: 1 0RF Rx Instructions: As directed Referrals / Follow Up: Bridgette Valdes, [Primary Care Provider] - Within 1 Week (get repeat CBC and Liver profile performed) Disposition Disposition (needs filled in before D/C Order can be placed): Home, Self Care Charges/Coding Visit Charges Inpatient E&M: 83914 Disch Hosp >30min
[2023-01-10 19:00] LABS: Ferritin 1225 ng/mL (8-252); Iron 19 ug/dL (50-170); Iron Binding Capacity,Total 157 ug/dL (250-450); LDH 200 U/L (84-246); PERCENT IRON SATURATION 12.1 % (15.0-55.0)
[2023-01-10 19:26] LABS: Erythrocyte Sedimentation Rate 35 mm/hr (0-30)
[2023-01-10 19:44] VITALS: BP 135/86; PULSE 96; RESP 18; TEMP 36.9; O2SAT 98
[2023-01-11 05:07] LABS: HEPATITIS B SURFACE AG Negative (Negative); Hep C Antibodies Non Reactive (Non Reactive); Hepatitis A IgM Antibody Negative (Negative); Hepatitis B Core AB IgM Negative (Negative)
[2023-01-11 09:46] LABS: Pathologist Review Reviewed
[2023-01-11 09:54] LABS: Pathologist Review Reviewed
== END 2023-01-10 19:56 | disposition home or self-care (01) ==
LOC: ED 10:23 → MS3 17:32
PROVIDERS: Internal Medicine Gastroenterology; Admitting Provider Internal Medicine; Emergency Provider Emergency Medicine; Visit Provider Internal Medicine
DX: K75.89 Other specified inflammatory liver diseases (principal); D70.9 Neutropenia, unspecified; E11.65 Type 2 diabetes mellitus with hyperglycemia; E87.1 Hypo-osmolality and hyponatremia; K91.872 Postprocedural seroma of a digestive system organ or structure following a digestive system procedure; Z79.84 Long term (current) use of oral hypoglycemic drugs
CPT/HCPCS: 99285; 36415; 74177; 74181; 80053; 80074; 80329; 81001; 82728; 82962; 83540; 83550; 83605; 83615; 83690; 85025; 85610; 85652; 85730; 86140; 87040; 87086; 87428; 93005; 96361; 96365; 96366; 96367; 96375; 96376; 97802; 99221; J2185; J7030; J7040; Q9967; A4216; G0378; G0480; J2405

== ENCOUNTER 2023-02-01 11:00 | Outpatient (RCR) | payer BC, SELFPAY ==
[2023-01-18 11:55] VITALS: BP 116/72; PULSE 90; RESP 18; TEMP 36.1
--- NOTE | 2023-01-18 15:01 | HP.PCM_ITS ---
History of Present Illness Date of Service: 01/18/23 Chief Complaint: Infected Seroma of right side of abdominal incision History of Wound: Zulma is a 37 yo woman that presents to the wound healing center for an area of an abdominoplasty incision that developed a seroma and infection. Her surgery was approx. 4 weeks ago and she had evidence of infection that was incised and drained by the ER at [facility] and then was hospitalized again for infection. She was discharged on Levaquin orally. She has been packing the wound with wet to dry gauze and covering with gauze and securing with tape. She has noticed decreased drainage over the last 2 days. She denies fever, chills, erythema, odor. She has been trying to avoid pressure and bending at her waist. [facility] Medical History (Updated 01/18/23 @ 15:[address] Zulma Avila DO) Diabetes type 2, controlled Fibroid uterus Malaise Neutropenia Pre-diabetes Transaminasemia Transient hypotension Home Medications blood-glucose meter #1 ea 01/30/22 [Rx Last Taken Unknown] dulaglutide 0.75 mg/0.5 mL subcutaneous pen injector 1 mg subcut TU DIABETES 01/30/22 [History Last Taken Unknown] ketorolac 10 mg tablet 10 mg PO Q6H PRN pain 5 days #20 tabs 01/10/23 [Rx Last Taken Unknown] levofloxacin 500 mg tablet 500 mg PO DAILY@0600 #7 tabs 01/10/23 [Rx Last Taken Unknown] Allergy/AdvReac Type Severity Reaction Status Date / Time amoxicillin [Amoxicillin] Allergy Hives Verified 01/09/23 10:02 cephalexin Allergy Rash Verified 01/09/23 10:02 Family History Other Diabetes High cholesterol Hypertension Thyroid disorder Surgical History H/O abdominoplasty H/O: hysterectomy History of 2 sections Social History Smoking Status: Never smoker alcohol intake: never substance use type: does not use what type of physical activity do you participate in: bicycling, aerobics and weight training frequency: 5-6 times per week ROS Constitutional Constitutional: Denies chills, fatigue or fever(s) Eyes Eyes: Denies blurry vision, change in vision or loss of vision ENT HEENT: Denies dysphagia, hearing loss or sore throat Cardiovascular Cardiovascular: Denies chest pain, edema or palpitations Respiratory/Chest Respiratory/Chest: Denies dry cough, dyspnea, dyspnea on exertion, productive cough or wheezing Gastrointestinal Gastrointestinal: Denies diarrhea, nausea or vomiting Genitourinary Genitourinary: Denies dysuria or polyuria Musculoskeletal Musculoskeletal: Denies arthralgias, joint stiffness or muscle weakness Integumentary Integumentary: Reports erythema and wounds Neurologic Neurologic: Denies dizziness, memory loss or weakness Psychiatric Psychiatric: Denies homicidal ideation or suicidal ideation Endocrine Endocrinology: Denies polydipsia, polyphagia or polyuria Hematologic/Lymphatic Hematologic/Lymphatic: Denies easy bleeding or easy bruising Allergic/Immunologic Allergic/Immunologic: Denies throat swelling, tongue swelling or urticaria Vital Signs Vital Signs Vital Signs: 01/18/23 11:55 Temperature 97 F L Temperature Source Temporal Pulse Rate 90 Respiratory Rate 18 Blood Pressure 116/72 Blood Pressure Mean 86 Blood Pressure Source Monitor Blood Pressure Position Sitting Blood Pressure Location Right Arm Oxygen Delivery Method Room Air Physical Exam Const alert, oriented x3 and no apparent distress General Appearance: cooperative and comfortable HEENT normocephalic and head/scalp atraumatic Resp normal respiratory effort Effort and Inspection: able to speak in complete sentences Cardio regular rate and regular rhythm Skin Wounds: wounds noted Wound Narrative: as in clinical panel Psych mental status grossly normal, thought process normal, cooperative and affect normal Debridement Note Debridement Note Wound debrided: right side of lower abdominal incision Laterality: Right Type of Debridement: Excisional debridement Anesthesia Used: 4% Lidocaine Solution and 5% Lidocaine Gel Depth: Down to and including healthy tissue and in the subcutaneous layer Percentage of wound debrided: 100 Instrument Used: 5mm curette Tissue Removed: Yellow slough, devitalized tissue Severity: Fat Layer Exposed Amount of bleeding with debridement: Mild Bleeding Controlled with: Compression and gauze Patient tolerated procedure: Patient tolerated procedure well Post-Debridement Measurements and Additional Note: Post-Debridement Measurements/Treatment FARSHAD - Nurse 1 - General Ulcer Assessment Start: 01/18/23 09:04 Freq: Status: Active Protocol: KURT Activity Type Activity Date Activity User E-sign Co-sign Detail Recorded Client Recorded Date Recorded By Document 01/18/23 11:55 MN [id number] 01/18/23 12:19 MN 01/18/23 11:55 - Today's Visit Information Type of service Initial Visit Arrival Mode Ambulatory Accompanied by Patient Identification Verified (Name & Yes ) Safety Precautions Fall Prevention Vital Signs Temperature (97.8 F-99.1 F) 97 F L Temperature Source Temporal Pulse Rate (60-100) 90 Pulse Location Monitor Respiratory Rate (12-18) 18 Respiratory rate source Observation Oxygen Delivery Method Room Air Blood Pressure (90/60-120/80) 116/72 Blood Pressure Mean (mm Hg) 86 Source Monitor Position Sitting Blood Pressure Location Right Arm History Since Last Visit- (Skip if this is Patient's initial visit) Left Footwear Regular Shoe Right Footwear Regular Shoe Pain Scale: 0-10 Numeric Is Patient Pain Free? Yes - Nurse 1 - General Ulcer Measurement Start: 01/18/23 09:04 Freq: Status: Active Protocol: Activity Type Activity Date Activity User E-sign Co-sign Detail Recorded Client Recorded Date Recorded By Document 01/18/23 11:55 MN [id number] 01/18/23 12:19 MN 01/18/23 11:55 Wound Center Nurse 1 #1 R Lower Abdomen -Current Size (cm) - Length 0.5 -Current Size (cm) - Width 3.6 -Current Size (cm) - Depth 0.6 -Total Square Cm 1.80 -Date of Last Picture (Recall this 01/18/23 field) -Photo Taken Yes -Exudate Amt Small -Exudate Type Serous -Wound Margin Thickened & Rolled Under -Granulation Amt Large (67-100%) -Granulation Quality Pale,[place] -Necrosis Amt Small (1-33%) -Necrotic Tissue Type Adherent Slough -Texture (Julianna-wound Skin Appearance) Assessed -Moisture (Julianna-wound Skin Appearance) Assessed -Color (Julianna-wound Skin Appearance) Assessed -Temperature (Julianna-wound Skin No Abnormality Appearance) (Pt Warm) -Tenderness on Palpation (Julianna-wound No Skin Appearance) -Ulcer Cleansing Soap and Water -Foul Odor after Cleansing No -Anesthetic Used 5% Lidocaine Gel Lower Limb Edema Present NA - Nurse 2 - General Ulcer CM Notes Start: 01/18/23 09:04 Freq: Status: Active Protocol: Activity Type Activity Date Activity User E-sign Co-sign Detail Recorded Client Recorded Date Recorded By Document 01/18/23 13:02 MW Desktop 01/18/23 13:16 MW 01/18/23 13:02 Wound Center Nurse 2 #1 R Lower Abdomen -Time 13:04 -Correct Patient Yes -Correct Side, Site, Position Yes -Correct Procedure Yes -Procedure Performed Yes -Type of Procedure Debridement -Clinical Debridement Subcutaneous -Tissue Removed Subcutaneous -Post Debridement (cm) - Length 3.5 -Post Debridement (cm) - Width 0.7 -Post Debridement (cm) - Depth 0.6 -Total Square (Post) (cm) 2.45 -Area of Debridement (cm) - Length 3.5 -Area of Debridement (cm) - Width 0.7 -Total Square (Area) (cm) 2.45 -Tunneling No -Undermining/Tunneling No -Circular Undermining No -Wound/Ulcer Outcome Not Healed -Ulcer Cleansing Rinsed/ Irrigated with Saline -Foul Odor after Cleansing No -Bioengineered Tissue No -Bleeding Controlled with Pressure -Treatment Response Procedure Tolerated Well -Offloading No -Debridement - Subq, 1st 20sq cm Yes Pain Scale: 0-10 Numeric Is Patient Pain Free? Yes - Nurse 3 - General Ulcer D/C NN Start: 01/18/23 09:04 Freq: Status: Active Protocol: Activity Type Activity Date Activity User E-sign Co-sign Detail Recorded Client Recorded Date Recorded By Document 01/18/23 13:16 MW Desktop 01/18/23 13:17 MW 01/18/23 13:16 Wound Care Center Nurse 3 #1 R Lower Abdomen -Ulcer Cleansing Rinsed/ Irrigated with Saline -Foul Odor after Cleansing No -Negative Pressure Wound Therapy N/A -Primary Dressing Applied Fibracol Plus 4x4 -Primary Dressing Covered/Secured with Dry Gauze, Secured with Tape -Fibracol Plus 4x4 1 Treatment Response Procedure Tolerated Well Pain Scale: 0-10 Numeric Is Patient Pain Free? Yes Teaching: Wound Center Dressing Your Wound -Person Taught Patient,Family -Teaching Method Discussion -Response to teaching Verbalize understanding WC - Visit Discharge Discharge Condition Stable Ambulatory Status Ambulatory Transportation Private Auto Accompanied by Medication Reconcilliation completed & No provided to patient/care provider Clinical Summary of Care Provided Yes Assessment/Plan Assessment/Plan (1) Infected postoperative seroma: (2) Dehiscence of postoperative wound of abdomen: CODE(S): T81.31XA - Disruption of external operation (surgical) wound, not elsewhere classified, initial encounter PLAN: Plan Debridement performed today in clinic as annotated above. At home wound-care instructions: Wash with antibacterial soap and water daily. Will pack wound with Fibracol and cover with gauze and secure with medipore tape. Keep dressing clean and dry. Off-loading: The patient was instructed to avoid pressure and friction on the affected areas. Reposition every 2 hours at minimum. Avoid prolonged standing and/or dangling of legs. When seated, feet should be elevated at chest level. Frequent ambulation is encouraged. Diet: Patient encouraged to increase protein intake while taking caution to avoid high carbohydrate and/or sugar intake. Labs/cultures/imaging: Reviewed records from [facility] ER. Complete antibiotic currently taking. Follow-up: Return in 1 week for wound care follow up. Return sooner or report to the emergency room should symptoms worsen, or new symptoms arise. Note: [employer] speech recognition telephone cleaner software was used to create portions of this document. Sound-alike and misspelled words, as well as other telephone cleaner errors may be contained in the documentation.
[2023-01-25 11:12] VITALS: BP 121/68; PULSE 89; RESP 18; TEMP 36.4
--- NOTE | 2023-01-25 15:04 | PN.PCM_ITS ---
History of Present Illness Date of Service: 01/25/23 Chief Complaint: Infected Seroma of right side of abdominal incision History of Wound: Zulma is a 37 yo woman that presents to the wound healing center for an area of an abdominoplasty incision that developed a seroma and infection. Her surgery was approx. 4 weeks ago and she had evidence of infection that was incised and drained by the ER at [facility] and then was hospitalized again for infection. She was discharged on Levaquin orally. She has been packing the wound with wet to dry gauze and covering with gauze and securing with tape. She has noticed decreased drainage over the last 2 days. She denies fever, chills, erythema, odor. She has been trying to avoid pressure and bending at her waist. Subjective Subjective Wound is much improved. She tolerated dressing with Fibracol. Drainage is decreased. Denies fever, chills, odor. Objective Data Objective Data Vital Signs: Vital Signs Temp Pulse Resp BP O2 Del Method 97.6 F L 89 18 121/68 H Room Air 01/25/23 11:12 01/25/23 11:12 01/25/23 11:12 01/25/23 11:12 01/18/23 11:55 Oxygen Delivery Method Room Air Physical Exam Const alert, oriented x3 and no apparent distress General Appearance: cooperative and comfortable HEENT normocephalic and head/scalp atraumatic Resp normal respiratory effort Effort and Inspection: able to speak in complete sentences Cardio regular rate and regular rhythm Skin Wounds: wounds noted Wound Narrative: as in clinical panel Psych mental status grossly normal, thought process normal, cooperative and affect normal Debridement Note Debridement Note Wound debrided: right side of lower abdominal incision Laterality: Right Type of Debridement: Excisional debridement Anesthesia Used: 4% Lidocaine Solution and 5% Lidocaine Gel Depth: Down to and including healthy tissue and in the subcutaneous layer Percentage of wound debrided: 100 Instrument Used: 5mm curette Tissue Removed: Yellow slough, devitalized tissue Severity: Fat Layer Exposed Amount of bleeding with debridement: Mild Bleeding Controlled with: Compression and gauze Patient tolerated procedure: Patient tolerated procedure well Post-Debridement Measurements and Additional Note: Post-Debridement Measurements/Treatment FARSHAD - Nurse 1 - General Ulcer Assessment Start: 01/18/23 09:04 Freq: Status: Active Protocol: KURT Activity Type Activity Date Activity User E-sign Co-sign Detail Recorded Client Recorded Date Recorded By Document 01/18/23 11:55 MD [id number] 01/18/23 12:19 MD Document 01/25/23 11:12 RB [id number] 01/25/23 11:22 RB 01/18/23 01/25/23 11:55 11:12 - Today's Visit Information Type of service Initial Visit Follow-up Visit (Physician/WIRELESS COMMUNICATIONS ENGINEER ) Arrival Mode Ambulatory Ambulatory Transfer Assistance None Accompanied by Patient Identification Verified (Name & Yes Yes ) Patient Requires Transmission-Based No Precautions Safety Precautions Fall Prevention Vital Signs Temperature (97.8 F-99.1 F) 97 F L 97.6 F L Temperature Source Temporal Temporal Pulse Rate (60-100) 90 89 Pulse Location Monitor Monitor Respiratory Rate (12-18) 18 18 Respiratory rate source Observation Observation Oxygen Delivery Method Room Air Blood Pressure (90/60-120/80) 116/72 121/68 H Blood Pressure Mean (mm Hg) 86 85 Source Monitor Monitor Position Sitting Semi-Fowlers Blood Pressure Location Right Arm Left Arm History Since Last Visit- (Skip if this is Patient's initial visit) Have you changed medications since your No last visit? Any new allergies or adverse reactions No Had a fall/change in ADL's that may No increase risk of falls Signs or symptoms of abuse and/or No neglect since last visit Have you been in the hospital since your No last visit? Has dressing in place as prescribed Yes Has compression in place as prescribed No Has offloadiing in place as prescribed No Experienced any changes in pain level or No management Left Footwear Regular Shoe Right Footwear Regular Shoe Pain Scale: 0-10 Numeric Is Patient Pain Free? Yes Yes - Nurse 1 - General Ulcer Measurement Start: 01/18/23 09:04 Freq: Status: Active Protocol: Activity Type Activity Date Activity User E-sign Co-sign Detail Recorded Client Recorded Date Recorded By Document 01/18/23 11:55 MD [id number] 01/18/23 12:19 MD Document 01/25/23 11:12 RB [id number] 01/25/23 11:22 RB 01/18/23 01/25/23 11:55 11:12 Wound Center Nurse 1 #1 R Lower Abdomen -Combined with other wound No -Current Size (cm) - Length 0.5 0.8 -Current Size (cm) - Width 3.6 0.2 -Current Size (cm) - Depth 0.6 0.2 -Total Square Cm 1.80 0.16 -Date of Last Picture (Recall this 01/18/23 field) -Photo Taken Yes Yes -Tunneling No -Undermining/Tunneling No -Circular Undermining No -Exudate Amt Small Medium -Exudate Type Serous Serosanguineous -Wound Margin Thickened & Distinct, Rolled Under Outline Attached -Granulation Amt Large (67-100%) Medium (34-66%) -Granulation Quality Pale,[place] -Slough/Fibrin Yes -Necrosis Amt Small (1-33%) Medium (34-66%) -Necrotic Tissue Type Adherent Slough Adherent Slough -Structure Exposed N/A -Texture (Julianna-wound Skin Appearance) Assessed Assessed, Scarring -Moisture (Julianna-wound Skin Appearance) Assessed Assessed -Color (Julianna-wound Skin Appearance) Assessed Assessed -Temperature (Julianna-wound Skin No Abnormality No Abnormality Appearance) (Pt Warm) (Pt Warm) -Tenderness on Palpation (Julianna-wound No No Skin Appearance) -Ulcer Cleansing Soap and Water Wound Cleanser -Foul Odor after Cleansing No No -Anesthetic Used 5% Lidocaine 5% Lidocaine Gel Gel Lower Limb Edema Present NA WC - Nurse 2 - General Ulcer CM Notes Start: 01/18/23 09:04 Freq: Status: Active Protocol: Activity Type Activity Date Activity User E-sign Co-sign Detail Recorded Client Recorded Date Recorded By Document 01/18/23 13:02 MW Desktop 01/18/23 13:16 MW Document 01/25/23 11:28 MW [id number] 01/25/23 11:33 MW 01/18/23 01/25/23 13:02 11:28 Wound Center Nurse 2 #1 R Lower Abdomen -Time 13:04 11:28 -Correct Patient Yes Yes -Correct Side, Site, Position Yes Yes -Correct Procedure Yes Yes -Procedure Performed Yes Yes -Type of Procedure Debridement Debridement -Clinical Debridement Subcutaneous Subcutaneous -Tissue Removed Subcutaneous Subcutaneous -Post Debridement (cm) - Length 3.5 0.2 -Post Debridement (cm) - Width 0.7 1.2 -Post Debridement (cm) - Depth 0.6 0.2 -Total Square (Post) (cm) 2.45 0.24 -Area of Debridement (cm) - Length 3.5 0.2 -Area of Debridement (cm) - Width 0.7 1.2 -Total Square (Area) (cm) 2.45 0.24 -Tunneling No No -Undermining/Tunneling No No -Circular Undermining No No -Wound/Ulcer Outcome Not Healed Not Healed -Ulcer Cleansing Rinsed/ Rinsed/ Irrigated with Irrigated with Saline Saline -Foul Odor after Cleansing No No -Bioengineered Tissue No No -Bleeding Controlled with Pressure Pressure -Treatment Response Procedure Procedure Tolerated Well Tolerated Well -Offloading No No -Debridement - Subq, 1st 20sq cm Yes Yes Pain Scale: 0-10 Numeric Is Patient Pain Free? Yes Yes - Nurse 3 - General Ulcer D/C NN Start: 01/18/23 09:04 Freq: Status: Active Protocol: Activity Type Activity Date Activity User E-sign Co-sign Detail Recorded Client Recorded Date Recorded By Document 01/18/23 13:16 MW Desktop 01/18/23 13:17 MW 01/18/23 13:16 Wound Care Center Nurse 3 #1 R Lower Abdomen -Ulcer Cleansing Rinsed/ Irrigated with Saline -Foul Odor after Cleansing No -Negative Pressure Wound Therapy N/A -Primary Dressing Applied Fibracol Plus 4x4 -Primary Dressing Covered/Secured with Dry Gauze, Secured with Tape -Fibracol Plus 4x4 1 Treatment Response Procedure Tolerated Well Pain Scale: 0-10 Numeric Is Patient Pain Free? Yes Teaching: Wound Center Dressing Your Wound -Person Taught Patient,Family -Teaching Method Discussion -Response to teaching Verbalize understanding - Visit Discharge Discharge Condition Stable Ambulatory Status Ambulatory Transportation Private Auto Accompanied by Medication Reconcilliation completed & No provided to patient/care provider Clinical Summary of Care Provided Yes Assessment/Plan Assessment/Plan (1) Infected postoperative seroma: (2) Dehiscence of postoperative wound of abdomen: CODE(S): T81.31XA - Disruption of external operation (surgical) wound, not elsewhere classified, initial encounter PLAN: Plan Debridement performed today in clinic as annotated above. At home wound-care instructions: Wash with antibacterial soap and water daily. Will use hydrogel and adaptic and cover with gauze and secure with medipore tape. Keep dressing clean and dry. Off-loading: The patient was instructed to avoid pressure and friction on the affected areas. Reposition every 2 hours at minimum. Avoid prolonged standing and/or dangling of legs. When seated, feet should be elevated at chest level. Frequent ambulation is encouraged. Diet: Patient encouraged to increase protein intake while taking caution to avoid high carbohydrate and/or sugar intake. Labs/cultures/imaging: Complete antibiotic currently taking. Follow-up: Return in 1 week for wound care follow up. Return sooner or report to the emergency room should symptoms worsen, or new symptoms arise. Note: [employer] speech recognition chemical compounder software was used to create portions of this document. Sound-alike and misspelled words, as well as other chemical compounder errors may be contained in the documentation.
[2023-02-01 10:29] VITALS: BP 120/80; PULSE 85; RESP 18; TEMP 36.5
--- NOTE | 2023-02-01 11:16 | PN.PCM_ITS ---
History of Present Illness Date of Service: 02/01/23 Chief Complaint: Infected Seroma of right side of abdominal incision History of Wound: Zulma is a 37 yo woman that presents to the wound healing center for an area of an abdominoplasty incision that developed a seroma and infection. Her surgery was approx. 4 weeks ago and she had evidence of infection that was incised and drained by the ER at [facility] and then was hospitalized again for infection. She was discharged on Levaquin orally. She has been packing the wound with wet to dry gauze and covering with gauze and securing with tape. She has noticed decreased drainage over the last 2 days. She denies fever, chills, erythema, odor. She has been trying to avoid pressure and bending at her waist. Subjective Subjective She is healed today! Tolerated treatment with hydrogel well. Objective Data Objective Data Vital Signs: Vital Signs Temp Pulse Resp BP O2 Del Method 97.7 F L 85 18 120/80 Room Air 02/01/23 10:29 02/01/23 10:29 02/01/23 10:29 02/01/23 10:29 02/01/23 10:29 Oxygen Delivery Method Room Air Physical Exam Const alert, oriented x3 and no apparent distress General Appearance: cooperative and comfortable HEENT normocephalic and head/scalp atraumatic Resp normal respiratory effort Effort and Inspection: able to speak in complete sentences Cardio regular rate and regular rhythm Skin Wounds: wounds noted Wound Narrative: as in clinical panel Psych mental status grossly normal, thought process normal, cooperative and affect normal Debridement Note Debridement Note Wound debrided: right lower abdomen Laterality: Right No debridement was completed: No debridement was completed today (wound is healed) Post-Debridement Measurements and Additional Note: Post-Debridement Measurements/Treatment - Nurse 1 - General Ulcer Assessment Start: 01/18/23 09:04 Freq: Status: Active Protocol: .LOWJYOTI Activity Type Activity Date Activity User E-sign Co-sign Detail Recorded Client Recorded Date Recorded By Document 01/18/23 11:55 MT [id number] 01/18/23 12:19 MT Document 01/25/23 11:12 RB [id number] 01/25/23 11:22 RB Document 02/01/23 10:29 MT [id number] 02/01/23 10:35 MT 01/18/23 01/25/23 02/01/23 11:55 11:12 10:29 - Today's Visit Information Type of service Initial Visit Follow-up Visit (Physician/PAINT FACTORY WORKER ) Arrival Mode Ambulatory Ambulatory Transfer Assistance None Accompanied by Patient Identification Verified (Name & Yes Yes ) Patient Requires Transmission-Based No Precautions Safety Precautions Fall Prevention Vital Signs Temperature (97.8 F-99.1 F) 97 F L 97.6 F L 97.7 F L Temperature Source Temporal Temporal Temporal Pulse Rate (60-100) 90 89 85 Pulse Location Monitor Monitor Monitor Respiratory Rate (12-18) 18 18 18 Respiratory rate source Observation Observation Observation Oxygen Delivery Method Room Air Room Air Blood Pressure (90/60-120/80) 116/72 121/68 H 120/80 Blood Pressure Mean (mm Hg) 86 85 93 Source Monitor Monitor Monitor Position Sitting Semi-Fowlers Semi-Fowlers Blood Pressure Location Right Arm Left Arm Right Arm History Since Last Visit- (Skip if this is Patient's initial visit) Have you changed medications since your No last visit? Any new allergies or adverse reactions No Had a fall/change in ADL's that may No increase risk of falls Signs or symptoms of abuse and/or No neglect since last visit Have you been in the hospital since your No last visit? Has dressing in place as prescribed Yes Has compression in place as prescribed No Has offloadiing in place as prescribed No Experienced any changes in pain level or No management Left Footwear Regular Shoe Right Footwear Regular Shoe Pain Scale: 0-10 Numeric Is Patient Pain Free? Yes Yes Yes - Nurse 1 - General Ulcer Measurement Start: 01/18/23 09:04 Freq: Status: Active Protocol: Activity Type Activity Date Activity User E-sign Co-sign Detail Recorded Client Recorded Date Recorded By Document 01/18/23 11:55 MT [id number] 01/18/23 12:19 MT Document 01/25/23 11:12 RB [id number] 01/25/23 11:22 RB Document 02/01/23 10:29 MT [id number] 02/01/23 10:35 MT 01/18/23 01/25/23 02/01/23 11:55 11:12 10:29 Wound Center Nurse 1 #1 R Lower Abdomen -Combined with other wound No -Current Size (cm) - Length 0.5 0.8 0.1 -Current Size (cm) - Width 3.6 0.2 0.1 -Current Size (cm) - Depth 0.6 0.2 0.1 -Total Square Cm 1.80 0.16 0.01 -Date of Last Picture (Recall this 01/18/23 02/01/23 field) -Photo Taken Yes Yes Yes -Tunneling No -Undermining/Tunneling No -Circular Undermining No -Exudate Amt Small Medium None Present -Exudate Type Serous Serosanguineous -Wound Margin Thickened & Distinct, Rolled Under Outline Attached -Granulation Amt Large (67-100%) Medium (34-66%) None Present (0 %) -Granulation Quality Pale,[place] -Slough/Fibrin Yes -Necrosis Amt Small (1-33%) Medium (34-66%) -Necrotic Tissue Type Adherent Slough Adherent Slough -Structure Exposed N/A -Texture (Julianna-wound Skin Appearance) Assessed Assessed, Scarring -Moisture (Julianna-wound Skin Appearance) Assessed Assessed Assessed -Color (Julianna-wound Skin Appearance) Assessed Assessed Assessed -Temperature (Julianna-wound Skin No Abnormality No Abnormality No Abnormality Appearance) (Pt Warm) (Pt Warm) (Pt Warm) -Tenderness on Palpation (Julianna-wound No No No Skin Appearance) -Ulcer Cleansing Soap and Water Wound Cleanser -Foul Odor after Cleansing No No -Anesthetic Used 5% Lidocaine 5% Lidocaine Gel Gel Lower Limb Edema Present NA NA WC - Nurse 2 - General Ulcer CM Notes Start: 01/18/23 09:04 Freq: Status: Active Protocol: Activity Type Activity Date Activity User E-sign Co-sign Detail Recorded Client Recorded Date Recorded By Document 01/18/23 13:02 MW Desktop 01/18/23 13:16 MW Document 01/25/23 11:28 MW [id number] 01/25/23 11:33 MW Document 02/01/23 10:43 MW [id number] 02/01/23 10:45 MW 01/18/23 01/25/23 02/01/23 13:02 11:28 10:43 Wound Center Nurse 2 #1 R Lower Abdomen -Time 13:04 11:28 10:44 -Correct Patient Yes Yes Yes -Correct Side, Site, Position Yes Yes Yes -Correct Procedure Yes Yes Yes -Procedure Performed Yes Yes No -Type of Procedure Debridement Debridement -Clinical Debridement Subcutaneous Subcutaneous -Tissue Removed Subcutaneous Subcutaneous -Post Debridement (cm) - Length 3.5 0.2 0 -Post Debridement (cm) - Width 0.7 1.2 0 -Post Debridement (cm) - Depth 0.6 0.2 0 -Total Square (Post) (cm) 2.45 0.24 0 -Area of Debridement (cm) - Length 3.5 0.2 -Area of Debridement (cm) - Width 0.7 1.2 -Total Square (Area) (cm) 2.45 0.24 -Tunneling No No -Undermining/Tunneling No No -Circular Undermining No No -Wound/Ulcer Outcome Not Healed Not Healed Healed- Epithelialized -Ulcer Cleansing Rinsed/ Rinsed/ Irrigated with Irrigated with Saline Saline -Foul Odor after Cleansing No No -Bioengineered Tissue No No -Bleeding Controlled with Pressure Pressure -Treatment Response Procedure Procedure Tolerated Well Tolerated Well -Offloading No No -Debridement - Subq, 1st 20sq cm Yes Yes Pain Scale: 0-10 Numeric Is Patient Pain Free? Yes Yes Yes WC - Nurse 3 - General Ulcer D/C NN Start: 01/18/23 09:04 Freq: Status: Active Protocol: Activity Type Activity Date Activity User E-sign Co-sign Detail Recorded Client Recorded Date Recorded By Document 01/18/23 13:16 MW Desktop 01/18/23 13:17 MW Document 02/01/23 10:45 MW [id number] 02/01/23 10:46 MW 01/18/23 02/01/23 13:16 10:45 Wound Care Center Nurse 3 #1 R Lower Abdomen -Ulcer Cleansing Rinsed/ Irrigated with Saline -Foul Odor after Cleansing No -Negative Pressure Wound Therapy N/A -Primary Dressing Applied Fibracol Plus 4x4 -Primary Dressing Covered/Secured with Dry Gauze, Secured with Tape -Fibracol Plus 4x4 1 Treatment Response Procedure Procedure Tolerated Well Tolerated Well Pain Scale: 0-10 Numeric Is Patient Pain Free? Yes Yes Teaching: Wound Center Discharge Instructions -Person Taught Patient -Teaching Method Discussion -Response to teaching Verbalize understanding Dressing Your Wound -Person Taught Patient,Family -Teaching Method Discussion -Response to teaching Verbalize understanding WC - Visit Discharge Discharge Condition Stable Stable Ambulatory Status Ambulatory Ambulatory Transportation Private Auto Private Auto Accompanied by Medication Reconcilliation completed & No No provided to patient/care provider Clinical Summary of Care Provided Yes Yes Assessment/Plan Assessment/Plan (1) Infected postoperative seroma: (2) Dehiscence of postoperative wound of abdomen: CODE(S): T81.31XA - Disruption of external operation (surgical) wound, not elsewhere classified, initial encounter PLAN: Plan She is healed today! At home wound-care instructions: Advised to use vitamin E to scar areas twice daily. No restrictions. Off-loading: The patient was instructed to avoid pressure and friction on the affected areas. Reposition every 2 hours at minimum. Avoid prolonged standing and/or dangling of legs. When seated, feet should be elevated at chest level. Frequent ambulation is encouraged. Diet: Patient encouraged to increase protein intake while taking caution to avoid high carbohydrate and/or sugar intake. Labs/cultures/imaging: Follow-up: She will be discharged from treatment at this time. It has been a pleasure treating her. Note: [employer] speech recognition software project manager software was used to create portions of this document. Sound-alike and misspelled words, as well as other software project manager errors may be contained in the documentation.
== END 2023-02-04 09:12 | disposition home or self-care (01) ==
LOC: WC 11:00
PROVIDERS: Visit Provider Family Medicine
DX: T81.31XA Disruption of external operation (surgical) wound, not elsewhere classified, initial encounter (principal); E11.9 Type 2 diabetes mellitus without complications; L76.34 Postprocedural seroma of skin and subcutaneous tissue following other procedure; Y83.8 Other surgical procedures as the cause of abnormal reaction of the patient, or of later complication, without mention of misadventure at the time of the procedure; Z79.85 Long-term (current) use of injectable non-insulin antidiabetic drugs
CPT/HCPCS: 11042; 99212; 99213; G0463

== ENCOUNTER → 2023-03-06 | Outpatient (CLI) | payer BC, SELFPAY | END | disposition home or self-care (01) | LOC: LABSPEC 12:13 | PROVIDERS: Referring Provider Physician Assistant; Visit Provider Physician Assistant | DX: L03.90 Cellulitis, unspecified (principal) | CPT/HCPCS: 87070; 87186; 87205 ==

== ENCOUNTER 2023-06-30 04:00 | Emergency (ER) | payer BC, SELFPAY ==
[2023-06-30 04:01] VITALS: BP 128/77; PULSE 87; RESP 16; TEMP 36.7; O2SAT 98; BMI 31.8
[2023-06-30] MEDS: Morphine 4 MG/ML Syringe 6 MG IM (04:32)
[2023-06-30] MEDS: Ondansetron ODT 4 MG Tablet PO (04:32)
--- NOTE | 2023-06-30 04:55 | RAD_ITS ---
INDICATION: pain EXAMINATION/TECHNIQUE: X-RAY - LEFT XR Wrist Min 3 Views COMPARISON: None. FINDINGS: 3 views of the left wrist. BONES: Normal anatomic alignment without evidence of fracture or subluxation. No concerning bony lesion or abnormal sclerosis to suggest lesion. JOINTS: No significant degenerative change. SOFT TISSUES: Unremarkable. RAD/Wrist min 3 Views IMPRESSION: No acute osseous abnormality of the left wrist. Electronically Signed: Royce Cordero MD at 5:23 EDT ,
--- NOTE | 2023-06-30 05:28 | EDS_ITS ---
HPI History of Present Illness Chief Complaint: Upper Extremity Injury Informant: patient and spouse/S.O. Narrative Narrative: Patient is a 38-year-old female with history of type 2 diabetes. She states roughly 2 weeks ago she went to a few golf lessons and changed her kindergartner. She states after doing this she noticed that she had pain and irritation within the left fingers that was worse with motion. She does report she is right-hand dominant. She states that this began to improve but then she went and played another 9 rounds of golf yesterday and after doing so developed increased pain and swelling in the left wrist. She states there is no sudden onset of pain and no direct trauma but as time is past the swelling and pain has worsened to the point where she cannot sleep and therefore comes in for evaluation. [facility] Medical History (Updated 07/01/23 @ 00:[address] Viral Batres, ) Cellulitis of left thigh Diabetes type 2, controlled Fibroid uterus Malaise Neutropenia Pre-diabetes Transaminasemia Transient hypotension Home Medications blood-glucose meter #1 ea 01/30/22 [Rx Last Taken Unknown] ondansetron 4 mg disintegrating tablet 4 mg PO TID PRN nausea and vomiting #21 tabs 06/30/23 [Rx Last Taken Unknown] oxycodone-acetaminophen 5 mg-325 mg tablet (Percocet) 1 tab PO Q6H PRN pain 3 days #12 tabs 06/30/23 [Rx Last Taken Unknown] prednisone 20 mg tablet 40 mg (2 x 20 mg) PO DAILY 5 days #10 tabs 06/30/23 [Rx Last Taken Unknown] semaglutide 1 mg/dose (4 mg/3 mL) subcutaneous pen injector (Ozempic) 1 mg subcut QWEEK 06/30/23 [History Last Taken Unknown] Allergy/AdvReac Type Severity Reaction Status Date / Time amoxicillin [Amoxicillin] Allergy Hives Verified 06/30/23 04:01 cephalexin Allergy Rash Verified 06/30/23 04:01 Sulfa (Sulfonamide AdvReac Hives Verified 06/30/23 04:01 Antibiotics) Family History Other Diabetes High cholesterol Hypertension Thyroid disorder Surgical History H/O abdominoplasty H/O: hysterectomy History of 2 sections Social History Smoking Status: Never smoker alcohol intake: never substance use type: does not use what type of physical activity do you participate in: bicycling, aerobics and weight training frequency: 5-6 times per week ROS ROS ED Constitutional Constitutional ED: Denies chills or fever(s) ENT ENT ED: Denies sore throat Cardiovascular Cardiovascular: Denies chest pain Respiratory/Chest Respiratory/Chest: Denies cough or dyspnea Gastrointestinal Gastrointestinal: Denies abdominal pain, diarrhea, nausea or vomiting Genitourinary Genitourinary ED: Denies dysuria Musculoskeletal Musculoskeletal: Reports other Details: Positive left hand/wrist pain Integumentary Denies Abrasions or rash Neurologic Neurologic: Denies headache(s) or paresthesias Hematologic/Lymphatic Hematologic/Lymphatic: Denies easy bleeding or easy bruising EXAM Physical Exam Const Vital Signs: 06/30/23 04:01 Temperature 98.1 F Temperature Source Oral Pulse Rate 87 Respiratory Rate 16 Blood Pressure 128/77 H Blood Pressure Mean 94 Pulse Ox 98 Positive well nourished, well developed and obese General Appearance ED: well developed Nutritional Appearance: obese HEENT HEENT Narrative: Normocephalic atraumatic Eyes PERRL and EOMs intact bilaterally Neck supple Resp normal respiratory effort and clear to auscultation bilaterally Cardio regular rate and regular rhythm Extremity Extremity Narrative: Left upper extremity is neurovascularly intact; AIN/PIN are intact and normal. Active range of motion is decreased secondary to pain. Patient has soft tissue swelling to the dorsal aspect of the left distal forearm into the wrist and proximal hand. There is increased pain with extension and flexion at the wrist as well as ulnar deviation. However there is no obvious ligamentous laxity or tendon injury noted. No pain in the anatomical snuffbox. No secondary changes to suggest infection and compartments are soft going against compartment syndrome. Neuro oriented x3 and CN's II-XII intact bilaterally Sensorium / Orientation: alert Psych mental status grossly normal Skin no rashes or lesions noted Skin Narrative: Soft tissue swelling with faint ecchymosis to the dorsal aspect of the left distal forearm and wrist without erythema or warmth or rash to indicate infectious process. Capillary refill is less than 3 seconds MDM MDM MDM Narrative Medical decision making narrative: Patient presented to the ER with increasing pain to the left wrist/forearm with no direct trauma but did report recent overuse activity with golfing lesson and 9 holes of playing. Based on the diffuse nature of pain differential diagnosis is for sprain/strain versus potential fracture or dislocation. Therefore an x- ray was obtained which revealed no acute findings. Compartments are soft going against compartment syndrome she does not have any obvious findings to suggest gout or pseudogout or signs of upper extremity DVT. At this time with the gradual onset of pain and overuse activity and physical exam showing soft tissue swelling I do feel that patient has a wrist sprain which she sustained from changing her golf kindergartner and playing multiple holes. She has a brace at home already so therefore be given an Maverick wrap for compression and pain control and she can follow-up with her orthopedic surgeon to discuss further testing or injections if symptoms persist History & Record Review Discussion w/independent historian: Patient and Significant other Radiography Diagnostic Testing: Clinical Impression(s) from Imaging Studies Wrist X-Ray 06/30/23 04:55 IMPRESSION: No acute osseous abnormality of the left wrist. Electronically Signed: Royce Cordero MD at 5:23 EDT , X-ray of the left wrist as interpreted by the emergency medicine physician reveals no acute fracture dislocation foreign body or joint effusion Discharge Plan Triage Chief Complaint: Upper Extremity Injury ED Provider: Viral Batres Dx/Rx/DC Orders Clinical Impression: Left wrist sprain, Diabetes type 2, controlled Instructions: Understanding a Wrist Sprain, ED Wrist Sprain Prescriptions: New prednisone 20 mg tablet 40 mg PO DAILY 5 Days Qty: 10 0RF oxycodone-acetaminophen [Percocet] 5-325 mg tablet 1 tab PO Q6H PRN (Reason: pain) 3 Days Qty: 12 0RF ondansetron 4 mg tablet,disintegrating 4 mg PO TID PRN (Reason: nausea and vomiting) Qty: 21 0RF No Action (DME) blood-glucose meter Kit See Rx Instructions .ROUTE .MEDSUPPLY Qty: 1 0RF Rx Instructions: As directed Ozempic 1 mg/dose (4 mg/3 mL) pen injector 1 mg SUBCUT QWEEK Patient Comments: INJECT 1 MG UNDER THE SKIN ONCE A WEEK Stand Alone Forms: ED Work / School Excuse Primary Care Provider: Bridgette Valdes Referrals: Bridgette Valdes, [Primary Care Provider] - Activity Restrictions/Additional Instructions: Your x-ray shows no fracture dislocation or signs of fluid on the joint. Your history and exam indicate that you have sprained your wrist ligaments with potential partial tear. Wear your Maverick wrap for compression and the Velcro brace you have at home for stabilization. Follow-up with your orthopedic surgeon to discuss need for localized injections and/or potential MRI for further diagnostic options. If you have any further concerns please return to the ER for repeat evaluation Disposition Disposition: Home, Self Care Discharge Date/Time: 06/30/23 05:47
[2023-06-30] MEDS: Oxycodone/Apap 5/325 Tablet PO (05:37)
[2023-06-30] MEDS: predniSONE 20 MG Tablet 60 MG PO (05:38)
[2023-06-30 05:47] VITALS: PULSE 73; O2SAT 96
== END 2023-06-30 05:47 | disposition home or self-care (01) ==
PROVIDERS: Emergency Provider Emergency Medicine; Visit Provider Emergency Medicine
DX: S63.92XA Sprain of unspecified part of left wrist and hand, initial encounter (principal); E11.9 Type 2 diabetes mellitus without complications; Z90.710 Acquired absence of both cervix and uterus; X58.XXXA Exposure to other specified factors, initial encounter; Y93.53 Activity, golf
CPT/HCPCS: 73110; 96372; 99283

== ENCOUNTER 2024-01-17 16:16 | Outpatient (RCR) | payer SELFPAY | END 2024-01-17 19:00 | disposition home or self-care (01) | LOC: PT 16:16 | DX: Z00.00 Encounter for general adult medical examination without abnormal findings (principal) ==

== ENCOUNTER → 2024-04-13 | Outpatient (CLI) | payer BC, SELFPAY ==
[2024-04-13 15:27] LABS: Absolute Lymphocyte Count 1.74 X10^3/uL (0.83-4.51); Absolute Neutrophil Count 3.8 X10^3/uL (2.0-7.7); Basophil# 0.07 X10^3/uL; Basophil% 1.1 % (0-1); Eosinophil# 0.06 X10^3/uL; Hematocrit 44.8 % (37-47); Lymphocyte # 1.74 X10^3/ul (0.83-4.51); Lymphocyte % 28.3 % (19-41); Mean Corp Hgb Conc 33.5 g/dL (32-36); Mean Corpuscular Hgb 27.2 pg (27.0-32.0); Mean Corpuscular Volume 81.2 fL (81-99); Mean Platelet Vol. 10.9 fl (6.2-12.0); Monocyte# 0.44 X10^3/uL; Monocyte% 7.2 % (0-10); NRBC Flagged by Analyzer 0 % (0-5); Neutrophil # 3.81 X10^3/uL (2.7-7.7); Neutrophil % 62.1 % (47-70); Platelet Count 257 K/mm3 (150-450); RBC Distribution Width CV 11.9 % (11.6-14.6); RBC Distribution Width SD 34.5 fl (35.1-43.9); Red Blood Count 5.52 M/mm3 (4.2-5.4); White Blood Count 6.1 K/mm3 (4.4-11.0)
[2024-04-13 16:01] LABS: ALB/GLOB Ratio 1.1 RATIO (0.9-2.4); AST(SGOT) 17 U/L (15-37); Alanine Aminotransfer ALT/SGPT 26 U/L (13-56); Albumin, Serum 4.1 g/dL (3.2-5.0); Alkaline Phosphatase 87 U/L (45-117); Anion Gap 8 (5-15); BUN 11 mg/dL (7-18); BUN/Creat Ratio 15.6 RATIO (10-20); Calcium,Total 9.1 mg/dL (8.5-10.1); Chloride 104 mmol/L (98-107); Creatinine, Serum 0.71 mg/dL (0.55-1.02); EST Glomerular Filtration Rate 98 mL/min (>60); Est Glom Filt Rate - Afr Amer 119 mL/min (>60); Ferritin 211 ng/mL (8-252); Globulin 3.8 g/dL (2.2-4.2); Glucose 86 mg/dL (74-106); Potassium 3.9 mmol/L (3.5-5.1); Protein, Total 7.9 g/dL (6.4-8.2); Sodium Level 136 mmol/L (136-145); T4 Free Direct 1.05 ng/dL (0.76-1.46); Thyroid Stim Hormone (TSH) 0.75 uIU/mL (0.358-3.74)
[2024-04-20 08:07] LABS: Zinc, Plasma or Serum 102 ug/dL (44-115)
== END | disposition home or self-care (01) ==
PROVIDERS: Referring Provider Physician Assistant; Visit Provider Physician Assistant
DX: L21.8 Other seborrheic dermatitis (principal); L65.0 Telogen effluvium
CPT/HCPCS: 36415; 80053; 82728; 84439; 84443; 84630; 85025

== ENCOUNTER → 2024-12-17 | Outpatient (CLI) | payer BC, SELFPAY ==
[2024-12-17 10:29] LABS: Free T3 2.9 pg/mL (2.18-3.98); Thyroid Stim Hormone (TSH) 0.875 uIU/mL (0.300-4.200)
[2024-12-21 09:08] LABS: Thyroglobulin Antibody < 1.0 IU/mL (0.0-0.9); Thyroid Peroxidase AB 16 IU/mL (0-34)
== END | disposition home or self-care (01) ==
LOC: MTLAB 07:44
DX: R79.89 Other specified abnormal findings of blood chemistry (principal)
CPT/HCPCS: 36415; 84439; 84443; 84481; 86376; 86800

== ENCOUNTER → 2024-12-28 | Outpatient (CLI) | payer BC, SELFPAY | END | disposition home or self-care (01) | DX: J02.9 Acute pharyngitis, unspecified (principal) | CPT/HCPCS: 87070; 87077; 87186 ==

== ENCOUNTER → 2025-04-05 | Outpatient (CLI) | payer BC, SELFPAY ==
[2025-04-05 10:30] LABS: Hematocrit 42.1 % (37-47); Hemoglobin 14.6 g/dL (12.0-15.0); Mean Corp Hgb Conc 34.7 g/dL (32-36); Mean Corpuscular Hgb 28.1 pg (27.0-32.0); Mean Platelet Vol. 10.5 fl (6.2-12.0); Platelet Count 237 K/mm3 (150-450); RBC Distribution Width CV 11.9 % (11.6-14.6); RBC Distribution Width SD 34.2 fl (35.1-43.9); White Blood Count 4.8 K/mm3 (4.4-11.0)
[2025-04-05 11:16] LABS: Hemoglobin A1c 5.4 % (<=5.6)
[2025-04-05 11:18] LABS: ALB/GLOB Ratio 1.4 RATIO (0.9-2.4); AST(SGOT) 20 U/L (<=31); Alanine Aminotransfer ALT/SGPT 16 U/L (<=34); Albumin, Serum 4.3 g/dL (3.5-5.0); Alkaline Phosphatase 66 U/L (35-104); Anion Gap 12 (5-15); BUN 13 mg/dL (4-19); BUN/Creat Ratio 17.4 RATIO (10-20); Calcium,Total 8.9 mg/dL (7.6-11.0); Carbon Dioxide 21.2 mmol/L (21.0-32.0); Chloride 106 mmol/L (98-108); Cholesterol 172 mg/dL (<=200); Creatinine, Serum 0.72 mg/dL (0.70-1.20); EST Glomerular Filtration Rate 108 (>60); Globulin 3.1 g/dL (2.2-4.2); Glucose 93 mg/dL (70-99); High Density Lipoprotein 54 mg/dL; Low Density Lipoprotein Calc. 97 mg/dL; Protein, Total 7.4 g/dL (5.9-8.4); Sodium Level 139 mmol/L (133-145); Triglycerides 109 mg/dL; Very Low Density Lipoprotein 22 mg/dL (5-40)
== END | disposition home or self-care (01) ==
LOC: LAB 08:22
DX: E11.9 Type 2 diabetes mellitus without complications (principal); E78.1 Pure hyperglyceridemia; E66.9 Obesity, unspecified
CPT/HCPCS: 36415; 80053; 80061; 83036; 84443; 85027